=== PATIENT | male | born 1955 | race Caucasian/White ===

== ENCOUNTER 2019-10-19 00:36 | Day surgery (SDC) | payer MEDICARE, SELFPAY ==
[2019-10-17 08:31] VITALS: BMI 23.7
[2019-10-19 08:43] VITALS: BP 134/82; PULSE 50; RESP 18; TEMP 36.3; O2SAT 99; BMI 24.6
[2019-10-19] MEDS: LACTATED RINGERS 1,000 ML 150 ML IV CONT (09:02)
--- NOTE | 2019-10-19 09:14 | WPDANESEPPF ---
Anes - Initial Pre Proc Eval Procedure: Operation Date: 10/19/19 09:15 Proposed Procedures p Screening Colonoscopy - Jason Vernon MD Date/Time: 10/19/19 09:14 Surgeon: Jason Vernon MD Pre Op Diagnosis: Neoplasm Screening Patient Data Age: 63 Gender: M Height: 5 ft 10 in Weight: 78 kg Last Vital Signs Temp 97.4 F L 10/19/19 08:43 Pulse 50 L 10/19/19 08:43 Resp 18 10/19/19 08:43 BP 134/82 10/19/19 08:43 Pulse Ox 99 10/19/19 08:43 Allergies Allergy/AdvReac Type Severity Reaction Status Date / Time No Known Allergies Allergy Unverified 10/19/19 08:42 Home Medications Medication Instructions Recorded Confirmed Type No Home Medications 10/17/19 10/19/19 History Patient hx anesthesia problems: none Family hx anesthesia problems: none PMFSH Past Medical History Medical History (Updated 10/19/19 @ 09:14 by Tulio Brown MD) Healthy adult Family History Family History (Updated 09/03/16 @ 14:00 by DOCTOR UNKNOWN) Father Malignant neoplasm of prostate Mother Family history of seizure disorder Family history of lupus erythematosus Other Diabetes mellitus Hypertension Social History Social History Smoking status: Former smoker Smoking end date: 08/30/08 Alcohol intake: current Anes - Eval Final PreProcedure Day of Procedure 10/19/19 09:14 Patient weight: normal Heart: regular rate and rhythm Lungs: clear to auscultation Airway: Mallampati scale class II Neurological: alert and oriented Last oral intake: >/= 8 hours ASA classification: II Emergent: no Anesthetic plan: proceed Anesthesia type and monitoring: general GIVS and standard monitoring Informed Consent: The patient's anesthetic plan and its attendant risks and benefits were discussed with the patient/family/POA. Questions were solicited and answers provided to the satisfaction of the patient/family/POA.
--- NOTE | 2019-10-19 09:41 | PM.HPGS ---
History of Present Illness History of Present Illness Consent: Risks, benefits, and alternatives have been discussed and questions answered. Patient agrees to proceed with procedure. Chief complaint: Neoplasm Screening Narrative: Mark Moore is a 63 year old male here for screening colonoscopy, last one about 7 years ago with polyps Review of Systems Constitutional: Constitutional: Denies headache(s) and Denies weakness Eyes: Eyes: Denies blurry vision ENT: Reports Normal hearing present, Denies headache(s) and Denies neck pain Cardiovascular: Cardiovascular: Denies chest pain and Denies dyspnea Respiratory: Respiratory: Denies dyspnea Gastrointestinal: Gastrointestinal: Reports no additional gastrointestinal complaints Genitourinary: Genitourinary: Denies dysuria Musculoskeletal: Musculoskeletal: Denies neck pain Integumentary/Breasts: Skin/Breast: Denies dry skin Neurologic: Reports Normal hearing present, Denies headache(s) and Denies weakness Psychiatric: Psychiatric: Denies anxiety Endocrine: Endocrine: Denies change in body appearance Hematologic/Lymphatic: Hematologic/Lymphatic: Denies easy bleeding Allergic/Immunologic: Allergic/Immunologic: Denies urticaria PMFSH Past Medical History Medical History (Updated 10/19/19 @ 09:41 by Jason Vernon MD) Adenomatous colon polyp Healthy adult Family History Family History (Updated 09/03/16 @ 14:00 by DOCTOR UNKNOWN) Father Malignant neoplasm of prostate Mother Family history of seizure disorder Family history of lupus erythematosus Other Diabetes mellitus Hypertension Social History Social History Smoking status: Former smoker Smoking end date: 08/30/08 Alcohol intake: current Meds Home Medications and Allergies Home Medications Medication Instructions Recorded Confirmed Type No Home Medications 10/17/19 10/19/19 History Allergies Allergy/AdvReac Type Severity Reaction Status Date / Time No Known Allergies Allergy Unverified 10/19/19 08:42 Vital Signs Vital Signs - 24 hr 10/19/19 08:43 Temperature 97.4 F L Pulse Rate 50 L Respiratory Rate 18 Blood Pressure 134/82 Pulse Oximetry 99 Exam Const: General: comfortable and no acute distress HENMT: General nose exam: Normal nares present Eyes: General: appearance normal, both eyes and all related structures Neck: Neck: no JVD Resp: Auscultation: clear to auscultation bilaterally Cardio: Rate: regular rate Rhythm: regular rhythm GI: Inspection: non-distended GI Palp: Yes Soft to palpation Skin: General skin exam: normal color Neuro: General: gait normal Speech: normal speech Extrem: General: normal to inspection Psych: Mental Status: mental status grossly normal Assessment and Plan Assessment and plan (1) Adenomatous colon polyp: Qualifiers: Colon location: unspecified part of colon Qualified Code(s): D12.6 - Benign neoplasm of colon, unspecified Code(s): D12.6 - Benign neoplasm of colon, unspecified Status: Acute Assessment and Plan: will proceed with colonoscopy
[2019-10-19 10:08] VITALS: BP 124/72; PULSE 54; RESP 19; O2SAT 97
[2019-10-19 10:18] VITALS: BP 122/81; PULSE 60; RESP 22; O2SAT 98
[2019-10-19 10:28] VITALS: BP 135/90; PULSE 56; RESP 22; O2SAT 97
== END 2019-10-19 10:32 | disposition home or self-care (01) ==
PROVIDERS: PCP Internal Medicine; Visit Provider Internal Medicine Gastroenterology
PROC: 0DJD8ZZ Inspection of Lower Intestinal Tract, Via Natural or Artificial Opening Endoscopic (ICD-10-PCS; CPT 45378; principal; 2019-10-19 09:15)
DX: Z12.11 Encounter for screening for malignant neoplasm of colon (principal); D12.2 Benign neoplasm of ascending colon; K57.30 Diverticulosis of large intestine without perforation or abscess without bleeding; K64.8 Other hemorrhoids; Z87.891 Personal history of nicotine dependence
CPT/HCPCS: 45385; 88305; J2704; J7120

== ENCOUNTER 2024-03-11 18:27 | Emergency (ER) | payer MEDICARE, SELFPAY ==
[2024-03-11 18:52] VITALS: BP 117/82; PULSE 86; RESP 16; TEMP 36.9; O2SAT 98
--- NOTE | 2024-03-11 18:59 | ED.URI ---
HPI - URI/Sore Throat General Chief Complaint: Upper Respiratory Infection Stated Complaint: COUGH/CONGESTION Source: patient, RN notes reviewed and old records reviewed Mode of arrival: ambulatory Limitations: no limitations History of Present Illness HPI Narrative: patient presents with complaints of sinus pain and pressure for approximately 10 days. He reports yellow nasal drainage. Left frontal headache. Has been inhaling mentholated medication with fair results. denies any injury or trauma. Denies fever, chills, sweats. Does report some fatigue and cough. Related Data Allergies Allergy/AdvReac Type Severity Reaction Status Date / Time No Known Allergies Allergy Verified 03/11/24 18:48 Review of Systems Review of Systems: All systems reviewed & are unremarkable except as noted in HPI and below Constitutional: Constitutional: Reports no additional constitutional complaints ENT: Reports system reviewed and no additional complaints, except as documented, Reports nasal congestion, Reports nasal discharge, Reports sinus pain, Reports sinus pressure and Reports sore throat Cardiovascular: Cardiovascular: Reports no additional cardiovascular complaints Respiratory: Respiratory: Reports no additional respiratory complaints and Reports cough Gastrointestinal: Gastrointestinal: Reports no additional gastrointestinal complaints Neurologic: Reports headache(s) PMFSH Past Medical History Medical History Adenomatous colon polyp Healthy adult Prostate cancer Surgical History Surgical History H/O cataract extraction H/O left inguinal hernia repair H/O left knee surgery H/O right inguinal hernia repair History of nasal surgery Hx of excision of mass exc 2cm neck mass, 1cm back mass x2 on 02/12/23 Family History Family History Father Malignant neoplasm of prostate Mother Family history of seizure disorder Family history of lupus erythematosus Other Diabetes mellitus Hypertension Social History Social History Smoking status: Former smoker Smoking end date: 08/30/08 Alcohol intake: current Comments At the time of my signature, I reviewed and agree with the nursing past medical, surgical, social, and family history. There is no relevant family history pertinent to the patient complaint. Exam Const: General: cooperative, no acute distress, alert and awake Orientation/consciousness: oriented to person, oriented to place and oriented to time HENMT: Head: normal to inspection Face and sinus: sinus tenderness frontal Mouth: Yes moist mucous membranes Resp: Effort & Inspection: normal respiratory effort and able to speak in complete sentences Auscultation: clear to auscultation bilaterally, no crackles, no rales, no rhonchi and no wheezes Cardio: Palpation: normal PMI Rate: regular rate Rhythm: regular rhythm Heart sounds: S1 normal heart sound present and S2 normal heart sound present Neuro: General: oriented to person, oriented to place and oriented to time Cranial nerves: Yes CN's II-XII intact bilaterally Psych: Appearance: grossly normal Thought process: Normal thought process present Insight: Good insight present (Psych) Judgement: Good judgement present (Psych) Course Course Level of Care: Express Care Visit Vital Signs Vital signs: Vital Signs Temperature 98.4 F 03/11/24 18:52 Pulse Rate 86 03/11/24 18:52 Respiratory Rate 16 03/11/24 18:52 Blood Pressure 117/82 03/11/24 18:52 Pulse Oximetry 98 03/11/24 18:52 Temperature 98.4 F 03/11/24 18:52 Pulse Rate 86 03/11/24 18:52 Respiratory Rate 16 03/11/24 18:52 Blood Pressure 117/82 03/11/24 18:52 Pulse Oximetry 98 03/11/24 18:52 Reviewed MDM - URI/Sore Throat MDM N
== END 2024-03-11 19:11 | disposition home or self-care (01) ==
PROVIDERS: Emergency Provider Nurse Practitioner Family; PCP Internal Medicine
DX: J01.10 Acute frontal sinusitis, unspecified (principal); Z87.891 Personal history of nicotine dependence; Z85.46 Personal history of malignant neoplasm of prostate
CPT/HCPCS: 99213; G0463

== ENCOUNTER 2024-08-24 13:40 | Outpatient (CLI) | payer MEDICARE, SELFPAY ==
--- NOTE | ~2024-08-24 | PE_ITS ---
EXAMINATION: PET_PETPSMAST_PT DATE: 08/24/2024 15:43 INDICATION: Prostate cancer TECHNIQUE: 4.858 mCi of Illucix Ga-68([id number]) was administered i.v. Low dose computed rachell graphy (CT) images were acquired from the base of the brain to the base of the brain to the proximal thighs for attenuation correction and anatomic localization. Positron emission tomography (PET) image s were acquired in the same distribution beginning 81 minutes after injection. Images including fused PET/CT images were reconstructed in axial, coronal, and sagittal planes. Automated exposure control technique was employed. The dose-length product was 978.48mGy-cm. COMPARISON: CT dated 08/20/2016 FINDINGS: Head/neck: Typical pattern of symmetric physiologic increased activity in the lacrimal, parotid and submandibula r glands as well as along the mucosa of the nasal and oral cavities, pharynx and hypopharynx. No path ologically enlarged cervical lymphadenopathy or suspicious foci of increased uptake in the visualized head or neck. Chest: Calcite left upper lobe nodule consistent with old granulomatous disease. Mild atelectasis in the dep endent lower lobes. No other suspicious pulmonary nodules, pulmonary edema or pleural effusion. Heart size is normal. No pericardial effusion. Thoracic aorta is normal in caliber. No pathologically enla rged or PSMA avid thoracic lymphadenopathy. Abdomen/pelvis/proximal thighs: Physiologic renal accumulation and excretion of activity in the kidneys, bladder and along portions o f ureters. Prostatomegaly measuring 4.9 x 4.4 cm. There is an asymmetric small focus of mild relative increased uptake with maximal SUV of 3.2 at the left side of the gland. Normal degree and slightly h eterogenous pattern of increased uptake throughout the liver and spleen without radiologic correlate or dominant PSMA avid lesion. The gallbladder, pancreas and bilateral adrenal glands are normal. Mode rate uptake scattered throughout the bowels with typical duodenal and proximal jejunal predominance a nd without radiologic correlate, also likely physiologic. There is prominent colonic sigmoid and desc ending colon predominant diverticulosis without adjacent inflammatory change to suggest diverticuliti s. No other abnormal foci of increased uptake or pathologically enlarged lymphadenopathy in the abdom en, pelvis or proximal thighs. Musculoskeletal: Small densely sclerotic bone island at the L3 vertebral body without corresponding PSMA activity. No other suspicious lytic, blastic or PSMA avid bone lesions to suggest metastatic disease. IMPRESSION: 1. Subtle asymmetric focus of mild relative increased uptake at the left side of the prostate which c ould represent the site of the reported biopsy-proven prostate cancer. No other lesions suspicious fo r metastatic disease. Reviewed, dictated and finalized at location B. [employer] ADMINISTRATOR IMPRESSION: 1. Subtle asymmetric focus of mild relative increased uptake at the left side o f the prostate which could represent the site of the reported biopsy-proven pro state cancer. No other lesions suspicious for metastatic disease.
== END 2024-08-24 13:41 | disposition home or self-care (01) ==
PROVIDERS: PCP Internal Medicine; Visit Provider Urology
DX: C61 Malignant neoplasm of prostate (principal)
CPT/HCPCS: 78815; A9596

== ENCOUNTER 2024-11-06 00:10 | Day surgery (SDC) | payer MEDICARE, SELFPAY ==
[2024-10-27 14:28] VITALS: BMI 25.2
--- OUTSIDE RECORDS SUMMARY | 2024-11-06 00:12 | XMS_ITS | Referral Summary ---
Author Organization [facility] Address [address] [place] [address] Care Team Providers Care Sub Master Name Role Phone Eligio Cramer MD Primary Care Provider [phone] Source Comments [facility],non-owned Affiliates and Associated Physician Practices is amultiple site organization consisting of ambulatory clinics and hospital sitesin [place], [place], [place] and [place]. This disclosure is being madepursuant to the Care Everywhere program and may not contain all information available regarding this patient. Last updated 18.[facility] Allergies No known active allergies Medications * Be aware that medications may not be up to date on this document. Alwaysverify current medications with the patient. Medication Sig Dispensed Refills Start Date End Date Status HYDROcodone-acetam inophen (NORCO) 5-325 MG tablet Take 1 tablet by mouth every 8 hours as needed for Pain 6 tablet 11/05/2019 Active cyclobenzaprine (FLEXERIL) 10 MG tablet Take 1 tablet by mouth 3 times daily as needed for Muscle Spasms 9 tablet 11/05/2019 Active acetaminophen (TYLENOL) 325 MG tablet Take 2 tablets by mouth every 4 hours as needed for Fever or Pain Maximum allowable Acetaminophen amount = 4 Grams (4000 mg) / 24 hours. 30 tablet 11/05/2019 Active triple antibiotic (NEOSPORIN) 5-400-5000 ointment Apply to affected area 3 times daily 30 g 11/05/2019 Active Active Problems No known active problems Immunizations Name Administration Dates Next Due TDAP (7yrs+) 11/14/2017 Social History Tobacco Use Types Packs/Day Years Used Date Smoking Tobacco: Never Smokeless Tobacco: Never Alcohol Use Standard Drinks/Week Comments Yes 0 (1 standard drink = 0.6 oz pur e alcohol) Alcohol every evening Sex and Gender Information Value Date Recorded Sex Assigned at Not on file Gender Identity Not on file Sexual Orientation Not on file Last Filed Vital Signs Vital Sign Reading Time Taken Comments Blood Pressure 123/78 11/15/2019 3:40 PM CDT Pulse 80 11/15/2019 3:40 PM CDT Temperature 36.7 C (98.1 F) 11/15/2019 3:40 PM CDT Respiratory Rate 16 11/15/2019 3:40 PM CDT Oxygen Saturation 99% 11/15/2019 3:40 PM CDT Inhaled Oxygen Concentration - - Weight 74.8 kg (165 lb) 11/15/2019 3:40 PM CDT Height 180.3 cm (5' 11 ) 11/15/2019 3:40 PM CDT Body Mass Index 23.01 11/15/2019 3:40 PM CDT Plan of Treatment Not on file Care Teams Sub Master Relationship Specialty Start Date End Date Eligio Cramer MD PCP - General Internal Medicine 11/14/17
--- OUTSIDE RECORDS SUMMARY | 2024-11-06 00:12 | XMS_ITS | Clinical Summary ---
Author Organization [facility] Address [address] [place] [id number] Phone Care Team Providers Care Grocery Supervisor Name Role Phone Eligio Cramer MD Primary Care Provider [phone] Allergies No known active allergies Medications amoxicillin-cla vulanate (AUGMENTIN) 875-125 mg tablet Take 1 Tablet by mouth every 12 hours. Active HYDROcodone-aubrey taminophen (NORCO) 5-325 mg tabletIndicatio ns:Foreign body in paranasal sinus, initial encounter Take 1 Tablet by mouth every 6 hours as needed for Pain, Moderate. Max Daily Amount: 4 Tablets 18 Tablet 04/08/2020 Active Social History Tobacco Use Types Packs/Day Years Used Date Smoking Tobacco: Never Alcohol Use Standard Drinks/Week Comments Yes 0 (1 standard drink = 0.6 oz pur e alcohol) Sex and Gender Information Value Date Recorded Sex Assigned at Not on file Legal Sex Male 10:10 AM CDT Gender Identity Not on file Sexual Orientation Not on file Last Filed Vital Signs Vital Sign Reading Time Taken Comments Blood Pressure 147/87 04/08/2020 12:43 PM CDT Pulse 57 04/08/2020 12:43 PM CDT Temperature 36.1 C (97 F) 04/08/2020 12:43 PM CDT Respiratory Rate 18 04/08/2020 12:43 PM CDT Oxygen Saturation 98% 04/08/2020 12:43 PM CDT Inhaled Oxygen Concentration - - Weight 77.6 kg (171 lb) 04/08/2020 8:44 AM CDT Height 177.8 cm (5' 10 ) 04/08/2020 8:44 AM CDT Body Mass Index 24.54 04/08/2020 8:44 AM CDT Plan of Treatment Health Maintenance Due Date Last Done Comments COLORECTAL SCREENING 1998 Colorectal Cancer Screening 1998 FIT-DNA Q 3 years 1998 FIT/FOBT Q 1 year 1998 Flex Sig/CT Colonography Q 5 years 1998 PNEUMOCOCCAL VACCINE 50+ YEA RS (1 of 1 - PCV) 12/17/2003 ZOSTER VACCINE (1 of 2) 12/17/2003 INFLUENZA VACCINE (#1) 2024 11/14/2017 DTAP/TDAP/TD VACCINES (4 - T d or Tdap) 11/15/2027 11/14/2017, 03/18/2017, 03/23/2013 RSV VACCINE (60+ or ) (1 - 1-dose 75+ series) 2028 Medical Devices Implanted Type Area Machine Molder Device Identifier Shelf Expiration Date Model / Serial / Lot Hemostatic Surgifoam [id number] 1971 - [id number] Implanted:Qty : 1 on 04/08/2020 by Octavio Khan MD at [facility] Hemostatic N/A: Face [employer] [id number] 10/13/20231971 / [id number] Insurance [employer] ([employer]) PLUS [facility] MCR Advance Directives For more information, please contact: [phone] * Full Code (Latest Code Status on File) Date Activated Date Inactivated Comments 04/08/2020 9:39 AM 04/08/2020 3:09 PM * Full Code Date Activated Date Inactivated Comments 04/08/2020 8:42 AM 04/08/2020 9:39 AM Care Teams Grocery Supervisor Relationship Specialty Start Date End Date Eligio Cramer MD [address] [place] [address] PCP - General Internal Medicine 03/29/20
--- OUTSIDE RECORDS SUMMARY | 2024-11-06 00:13 | XMS_ITS | Data Portability ---
Author Organization [facility] Fritz Simon Address [address] [facility] [place] [address] Care Team Providers Care Colorectal Surgeon Name Role Phone MAYA CRAMER Primary Care Provider Assessment Encounter Date Assessment Date Assessment LastModified by Organization Details LastModified Time 02/24/2024 02/24/2024 we will give Prevnar 20 today old records says he had a colonoscopy in 2020 and [facility] retrieved that follow-up 6 months [email or web address] Not available 02/26/2024 09:35:54 08/17/2024 08/17/2024 low-fat diet check labs hearing test then probably we will need ENT follow up with [facility] 6 recommended to stay up-to-date on screenings and immunizations [email or web address] Not available 08/19/2024 15:39:31 Plan of Treatment Reminders Order Date Submit Date Provider Last Modified By Organization Details Last Modified Time Details Appointments ANY 15 2024 09:00A M Maya Cramer MD Not available Not available Not available Lab CBC w/ auto diff 2023 024 [facility], [address], [address], 10/27/2024 07:07:46 CMP, serum or plasma 2023 024 [facility], [address] [facility], [facility] [address], [place], [address], 10/27/2024 07:07:45 lipid panel, serum 2023 024 [facility], [address] [facility], [facility] [address], [place], [address], 10/27/2024 07:07:44 Referral None recorded . Procedures None recorded . Surgeries None recorded . Imaging None recorded . Medication Orders None recorded . Patient TargetsNo targets recorded. Patient Instructions Encounter Date Encounter Id Patient Instructions Last Modified By Organization Details Last Modified Time 08/17/2024 [id number] hearing evaluation* [email or web address] Not available 10/19/2024 16:52:36 Reason for Referral None Reported. Results Created Date Observation Date Name Description Value Unit Range Abnormal Flag Note LastModifiedBy Organization Detail LastModifiedTime 01/25/20 24 01/26/2024 LIPID PANEL cholesterol, total 209 mg/dL 100-19 9 above high normal Not Available [facility] ([facility]) [address] [place], [address], 01/26/2024 13:12:14 01/25/20 24 01/26/2024 LIPID PANEL triglyceride s 81 mg/dL 0-149 Not Available [facility] ([facility]) [address] [place], [address], 01/26/2024 13:12:14 01/25/20 24 01/26/2024 LIPID PANEL HDL cholesterol 69 mg/dL >39 Not Available [facility] ([facility]) [address] [place], [address], 01/26/2024 13:12:14 01/25/20 24 01/26/2024 LIPID PANEL VLDL cholesterol terrell 14 mg/dL 5-40 Not Available [facility] ([facility]) [address] [place], [address], 01/26/2024 13:12:14 01/25/20 24 01/26/2024 LIPID PANEL LDL chol calc ([facility]) 126 mg/dL 0-99 above high normal Not Available [facility] ([facility]) [address] [place], [address], 01/26/2024 13:12:14 01/25/20 24 01/26/2024 COMP. METAB OLIC PANEL (14) glucose 98 mg/dL 70-99 Not Available [facility] ([facility]) [address] [place], [address], 01/26/2024 13:12:15 01/25/20 24 01/26/2024 COMP. METAB OLIC PANEL (14) BUN 20 mg/dL 8-27 Not Available [facility] ([facility]) [address] [place], [address], 01/26/2024 13:12:15 01/25/20 24 01/26/2024 COMP. METAB OLIC PANEL (14) creatinine 0.86 mg/dL 0.76-1 .27 Not Available [facility] ([facility]) [address] [place], [address], 01/26/2024 13:12:15 01/25/20 24 01/26/2024 COMP. METAB OLIC PANEL (14) eGFR 93 mL/mi n/1.7 3 >59 Not Available [facility] ([facility]) [address] [place], [address], 01/26/2024 13:12:15 01/25/20 24 01/26/2024 COMP. METAB OLIC PANEL (14) BUN/creatini ne ratio 23 10-24 Not Available [facility] ([facility]) [address] [place], [address], 01/26/2024 13:12:15 01/25/20 24 01/26/2024 COMP. METAB OLIC PANEL (14) sodium 141 mmol/ L 134-14 4 Not Available [facility] ([facility]) [address] [place], [address], 01/26/2024 13:12:15 01/25/20 24 01/26/2024 COMP. METAB OLIC PANEL (14) potassium 4.8 mmol/ L 3.5-5. 2 Not Available [facility] ([facility]) [address] [place], [address], 01/26/2024 13:12:15 01/25/20 24 01/26/2024 COMP. METAB OLIC PANEL (14) chloride 107 mmol/ L 96-106 above high normal Not Available [facility] ([facility]) [address] [place], [address], 01/26/2024 13:12:15 01/25/20 24 01/26/2024 COMP. METAB OLIC PANEL (14) carbon dioxide, total 24 mmol/ L Not Available [facility] ([facility]) [address] [place], [address], 01/26/2024 13:12:15 01/25/20 24 01/26/2024 COMP. METAB OLIC PANEL (14) calcium 9.2 mg/dL 8.6-10 .2 Not Available [facility] ([facility]) [address] [place], [address], 01/26/2024 13:12:15 01/25/20 24 01/26/2024 COMP. METAB OLIC PANEL (14) protein, total 6.5 g/dL 6.0-8. 5 Not Available [facility] ([facility]) [address] [place], [address], 01/26/2024 13:12:15 01/25/20 24 01/26/2024 COMP. METAB OLIC PANEL (14) albumin 4.2 g/dL 3.9-4. 9 Not Available [facility] ([facility]) [address] [place], [address], 01/26/2024 13:12:15 01/25/20 24 01/26/2024 COMP. METAB OLIC PANEL (14) globulin, total 2.3 g/dL 1.5-4. 5 Not Available [facility] ([facility]) [address] [place], [address], 01/26/2024 13:12:15 01/25/20 24 01/26/2024 COMP. METAB OLIC PANEL (14) A/G ratio 1.8 1.2-2. 2 Not Available [facility] ([facility]) [address] [facility], [place], [address], 01/26/2024 13:12:15 01/25/20 24 01/26/2024 COMP. METAB OLIC PANEL (14) bilirubin, total 0.3 mg/dL 0.0-1. 2 Not Available [facility] ([facility]) [address] [facility], [place], [address], 01/26/2024 13:12:15 01/25/20 24 01/26/2024 COMP. METAB OLIC PANEL (14) alkaline phosphatase 61 IU/L 44-121 Not Available [facility] ([facility]) [address] [facility], [place], [address], 01/26/2024 13:12:15 01/25/20 24 01/26/2024 COMP. METAB OLIC PANEL (14) AST (SGOT) 14 IU/L 0-40 Not Available [facility] ([facility]) [address] [facility], [place], [address], 01/26/2024 13:12:15 01/25/20 24 01/26/2024 COMP. METAB OLIC PANEL (14) ALT (SGPT) 12 IU/L 0-44 Not Available [facility] ([facility]) [address] [facility], [place], [address], 01/26/2024 13:12:15 01/25/20 24 01/26/2024 CBC WITH DIFFE RENTI AL/PL ATELE T WBC 6.2 x10e3 /uL 3.4-10 .8 Not Available [facility] ([facility]) [address] [facility], [place], [address], 01/26/2024 13:12:16 01/25/20 24 01/26/2024 CBC WITH DIFFE RENTI AL/PL ATELE T RBC 4.55 x10e6 /uL 4.14-5 .80 Not Available [facility] ([facility]) [address] [facility], [place], [address], 01/26/2024 13:12:16 01/25/20 24 01/26/2024 CBC WITH DIFFE RENTI AL/PL ATELE T hemoglobin 14.2 g/dL 13.0-1 7.7 Not Available [facility] ([facility]) [address] [facility], [place], [address], 01/26/2024 13:12:16 01/25/20 24 01/26/2024 CBC WITH DIFFE RENTI AL/PL ATELE T hematocrit 43.4 % 37.5-5 1.0 Not Available [facility] ([facility]) [address] [facility], [place], [address], 01/26/2024 13:12:16 01/25/20 24 01/26/2024 CBC WITH DIFFE RENTI AL/PL ATELE T MCV 95 fL 79-97 Not Available [facility] ([facility]) [address] [place], [address], 01/26/2024 13:12:16 01/25/20 24 01/26/2024 CBC WITH DIFFE RENTI AL/PL ATELE T MCH 31.2 pg 26.6-3 3.0 Not Available [facility] ([facility]) [address] [place], [address], 01/26/2024 13:12:16 01/25/20 24 01/26/2024 CBC WITH DIFFE RENTI AL/PL ATELE T MCHC 32.7 g/dL 31.5-3 5.7 Not Available [facility] ([facility]) [address] [place], [address], 01/26/2024 13:12:16 01/25/20 24 01/26/2024 CBC WITH DIFFE RENTI AL/PL ATELE T RDW 12.6 % 11.6-1 5.4 Not Available [facility] ([facility]) [address] [facility], [place], [address], 01/26/2024 13:12:16 01/25/20 24 01/26/2024 CBC WITH DIFFE RENTI AL/PL ATELE T platelets 198 x10e3 /uL 150-45 0 Not Available [facility] ([facility]) [address] [facility], [place], [address], 01/26/2024 13:12:16 01/25/20 24 01/26/2024 CBC WITH DIFFE RENTI AL/PL ATELE T neutrophils 58 % notest ab. Not Available [facility] ([facility]) [address] [facility], [place], [address], 01/26/2024 13:12:16 01/25/20 24 01/26/2024 CBC WITH DIFFE RENTI AL/PL ATELE T lymphs 29 % notest ab. Not Available [facility] ([facility]) [address] [facility], [place], [address], 01/26/2024 13:12:16 01/25/20 24 01/26/2024 CBC WITH DIFFE RENTI AL/PL ATELE T monocytes 10 % notest ab. Not Available [facility] ([facility]) [address] [facility], [place], [address], 01/26/2024 13:12:16 01/25/20 24 01/26/2024 CBC WITH DIFFE RENTI AL/PL ATELE T eos 1 % notest ab. Not Available [facility] ([facility]) [address] [facility], [place], [address], 01/26/2024 13:12:16 01/25/20 24 01/26/2024 CBC WITH DIFFE RENTI AL/PL ATELE T basos 1 % notest ab. Not Available [facility] ([facility]) [address] [facility], [place], [address], 01/26/2024 13:12:16 01/25/20 24 01/26/2024 CBC WITH DIFFE RENTI AL/PL ATELE T neutrophils (absolute) 3.6 x10e3 /uL 1.4-7. 0 Not Available [facility] ([facility]) [address] [facility], [place], [address], 01/26/2024 13:12:16 01/25/20 24 01/26/2024 CBC WITH DIFFE RENTI AL/PL ATELE T lymphs (absolute) 1.8 x10e3 /uL 0.7-3. 1 Not Available [facility] ([facility]) [address] [facility], [place], [address], 01/26/2024 13:12:16 01/25/20 24 01/26/2024 CBC WITH DIFFE RENTI AL/PL ATELE T monocytes(ab solute) 0.6 x10e3 /uL 0.1-0. 9 Not Available [facility] ([facility]) [address] [facility], [place], [address], 01/26/2024 13:12:16 01/25/20 24 01/26/2024 CBC WITH DIFFE RENTI AL/PL ATELE T eos (absolute) 0.1 x10e3 /uL 0.0-0. 4 Not Available [facility] ([facility]) [address] [place], [address], 01/26/2024 13:12:16 01/25/20 24 01/26/2024 CBC WITH DIFFE RENTI AL/PL ATELE T baso (absolute) 0.1 x10e3 /uL 0.0-0. 2 Not Available [facility] ([facility]) [address] [facility], [place], [address], 01/26/2024 13:12:16 01/25/20 24 01/26/2024 CBC WITH DIFFE RENTI AL/PL ATELE T immature granulocytes 1 % notest ab. Not Available [facility] ([facility]) [address] [facility], [place], [address], 01/26/2024 13:12:16 01/25/20 24 01/26/2024 CBC WITH DIFFE RENTI AL/PL ATELE T immature grans (abs) 0.0 x10e3 /uL 0.0-0. 1 Not Available [facility] ([facility]) [address] [facility], [place], [address], 01/26/2024 13:12:16 01/25/20 24 01/26/2024 PROST ATE-S PECIF IC AG prostate specific Ag 9.5 NG/mL 0.0-4. 0 above high normal Terra ECLIA metho dolog y. Accor ding to the Ameri can [employer] g[employer] iatio n, Serum PSA shoul d decre ase and remai n at undet ectab le level s after radic al prost atect delfino. The AUA defin es bioch emica l recur rence as an initi al PSA value 0.2 ng/mL or great er follo wed by a subse quent confi rmato ry PSA value 0.2 ng/mL or great er. Value s obtai yadira with diffe rent assay metho ds or kits canno t be used inter tejeda eaherb . Resul ts canno t be inter prete d as absol nicholas evide nce of the prese nce or absen ce of jackie olivier se. Not Available [facility] ([facility]) [address] [facility], [place], [address], 01/26/2024 13:12:17 10/26/1910/27/2024 LIPID PANEL cholesterol, total 188 mg/dL 100-19 9 Not Available [facility] ([facility]) [address] [facility], [place], [address], 10/27/2024 07:07:44 10/26/19 25 10/27/2024 LIPID PANEL triglyceride s 64 mg/dL 0-149 Not Available [facility] ([facility]) [address] [place], [address], 10/27/2024 07:07:44 10/26/19 25 10/27/2024 LIPID PANEL HDL cholesterol 60 mg/dL >39 Not Available [facility] ([facility]) [address] [place], [address], 10/27/2024 07:07:44 10/26/19 25 10/27/2024 LIPID PANEL VLDL cholesterol terrell 12 mg/dL 5-40 Not Available [facility] ([facility]) [address] [place], [address], 10/27/2024 07:07:44 10/26/19 25 10/27/2024 LIPID PANEL LDL chol calc ([facility]) 116 mg/dL 0-99 above high normal Not Available [facility] ([facility]) [address] [place], [address], 10/27/2024 07:07:44 10/26/19 25 10/27/2024 COMP. METAB OLIC PANEL (14) glucose 106 mg/dL 70-99 above high normal Not Available [facility] ([facility]) [address] [place], [address], 10/27/2024 07:07:45 10/26/19 25 10/27/2024 COMP. METAB OLIC PANEL (14) BUN 20 mg/dL 8-27 Not Available [facility] ([facility]) [address] [place], [address], 10/27/2024 07:07:45 10/26/19 25 10/27/2024 COMP. METAB OLIC PANEL (14) creatinine 1.03 mg/dL 0.76-1 .27 Not Available [facility] ([facility]) [address] [place], [address], 10/27/2024 07:07:45 10/26/19 25 10/27/2024 COMP. METAB OLIC PANEL (14) eGFR 78 mL/mi n/1.7 3 >59 Not Available [facility] ([facility]) [address] [facility], [place], [address], 10/27/2024 07:07:45 10/26/19 25 10/27/2024 COMP. METAB OLIC PANEL (14) BUN/creatini ne ratio 19 10-24 Not Available [facility] ([facility]) [address] [facility], [place], [address], 10/27/2024 07:07:45 10/26/19 25 10/27/2024 COMP. METAB OLIC PANEL (14) sodium 144 mmol/ L 134-14 4 Not Available [facility] ([facility]) [address] [facility], [place], [address], 10/27/2024 07:07:45 10/26/19 25 10/27/2024 COMP. METAB OLIC PANEL (14) potassium 4.6 mmol/ L 3.5-5. 2 Not Available [facility] ([facility]) [address] [facility], [place], [address], 10/27/2024 07:07:45 10/26/19 25 10/27/2024 COMP. METAB OLIC PANEL (14) chloride 107 mmol/ L 96-106 above high normal Not Available [facility] ([facility]) [address] [facility], [place], [address], 10/27/2024 07:07:45 10/26/19 25 10/27/2024 COMP. METAB OLIC PANEL (14) carbon dioxide, total 24 mmol/ L 20-29 Not Available [facility] ([facility]) [address] [facility], [place], [address], 10/27/2024 07:07:45 10/26/19 25 10/27/2024 COMP. METAB OLIC PANEL (14) calcium 9.3 mg/dL 8.6-10 .2 Not Available [facility] ([facility]) [address] [place], [address], 10/27/2024 07:07:45 10/26/19 25 10/27/2024 COMP. METAB OLIC PANEL (14) protein, total 6.6 g/dL 6.0-8. 5 Not Available [facility] ([facility]) [address] [place], [address], 10/27/2024 07:07:45 10/26/19 25 10/27/2024 COMP. METAB OLIC PANEL (14) albumin 4.3 g/dL 3.9-4. 9 Not Available [facility] ([facility]) [address] [place], [address], 10/27/2024 07:07:45 10/26/19 25 10/27/2024 COMP. METAB OLIC PANEL (14) globulin, total 2.3 g/dL 1.5-4. 5 Not Available [facility] ([facility]) [address] [place], [address], 10/27/2024 07:07:45 10/26/19 25 10/27/2024 COMP. METAB OLIC PANEL (14) bilirubin, total 0.3 mg/dL 0.0-1. 2 Not Available [facility] ([facility]) [address] [place], [address], 10/27/2024 07:07:45 10/26/19 25 10/27/2024 COMP. METAB OLIC PANEL (14) alkaline phosphatase 74 IU/L 44-121 Not Available [facility] ([facility]) [address] [place], [address], 10/27/2024 07:07:45 10/26/19 25 10/27/2024 COMP. METAB OLIC PANEL (14) AST (SGOT) 19 IU/L 0-40 Not Available [facility] ([facility]) [address] [facility], [place], [address], 10/27/2024 07:07:45 10/26/19 25 10/27/2024 COMP. METAB OLIC PANEL (14) ALT (SGPT) 13 IU/L 0-44 Not Available [facility] ([facility]) [address] [facility], [place], [address], 10/27/2024 07:07:45 10/26/19 25 10/27/2024 CBC WITH DIFFE RENTI AL/PL ATELE T WBC 5.6 x10e3 /uL 3.4-10 .8 Not Available [facility] ([facility]) [address] [facility], [place], [address], 10/27/2024 07:07:46 10/26/19 25 10/27/2024 CBC WITH DIFFE RENTI AL/PL ATELE T RBC 4.67 x10e6 /uL 4.14-5 .80 Not Available [facility] ([facility]) [address] [facility], [place], [address], 10/27/2024 07:07:46 10/26/19 25 10/27/2024 CBC WITH DIFFE RENTI AL/PL ATELE T hemoglobin 14.5 g/dL 13.0-1 7.7 Not Available [facility] ([facility]) [address] [place], [address], 10/27/2024 07:07:46 10/26/19 25 10/27/2024 CBC WITH DIFFE RENTI AL/PL ATELE T hematocrit 43.9 % 37.5-5 1.0 Not Available [facility] ([facility]) [address] [place], [address], 10/27/2024 07:07:46 10/26/19 25 10/27/2024 CBC WITH DIFFE RENTI AL/PL ATELE T MCV 94 fL 79-97 Not Available [facility] ([facility]) [address] [facility], [place], [address], 10/27/2024 07:07:46 10/26/19 25 10/27/2024 CBC WITH DIFFE RENTI AL/PL ATELE T MCH 31.0 pg 26.6-3 3.0 Not Available [facility] ([facility]) [address] [facility], [place], [address], 10/27/2024 07:07:46 10/26/19 25 10/27/2024 CBC WITH DIFFE RENTI AL/PL ATELE T MCHC 33.0 g/dL 31.5-3 5.7 Not Available [facility] ([facility]) [address] [facility], [place], [address], 10/27/2024 07:07:46 10/26/19 25 10/27/2024 CBC WITH DIFFE RENTI AL/PL ATELE T RDW 12.8 % 11.6-1 5.4 Not Available [facility] ([facility]) [address] [place], [address], 10/27/2024 07:07:46 10/26/19 25 10/27/2024 CBC WITH DIFFE RENTI AL/PL ATELE T platelets 215 x10e3 /uL 150-45 0 Not Available [facility] ([facility]) [address] [facility], [place], [address], 10/27/2024 07:07:46 10/26/19 25 10/27/2024 CBC WITH DIFFE RENTI AL/PL ATELE T neutrophils 53 % notest ab. Not Available [facility] ([facility]) [address] [facility], [place], [address], 10/27/2024 07:07:46 10/26/19 25 10/27/2024 CBC WITH DIFFE RENTI AL/PL ATELE T lymphs 33 % notest ab. Not Available [facility] ([facility]) [address] [place], [address], 10/27/2024 07:07:46 10/26/19 25 10/27/2024 CBC WITH DIFFE RENTI AL/PL ATELE T monocytes 11 % notest ab. Not Available [facility] ([facility]) [address] [facility], [place], [address], 10/27/2024 07:07:46 10/26/19 25 10/27/2024 CBC WITH DIFFE RENTI AL/PL ATELE T eos 1 % notest ab. Not Available [facility] ([facility]) [address] [facility], [place], [address], 10/27/2024 07:07:46 10/26/19 25 10/27/2024 CBC WITH DIFFE RENTI AL/PL ATELE T basos 1 % notest ab. Not Available [facility] ([facility]) [address] [place], [address], 10/27/2024 07:07:46 10/26/19 25 10/27/2024 CBC WITH DIFFE RENTI AL/PL ATELE T neutrophils (absolute) 3.0 x10e3 /uL 1.4-7. 0 Not Available [facility] ([facility]) [address] [place], [address], 10/27/2024 07:07:46 10/26/19 25 10/27/2024 CBC WITH DIFFE RENTI AL/PL ATELE T lymphs (absolute) 1.8 x10e3 /uL 0.7-3. 1 Not Available [facility] ([facility]) [address] [place], [address], 10/27/2024 07:07:46 10/26/19 25 10/27/2024 CBC WITH DIFFE RENTI AL/PL ATELE T monocytes(ab solute) 0.6 x10e3 /uL 0.1-0. 9 Not Available [facility] ([facility]) [address] [facility], [place], [address], 10/27/2024 07:07:46 10/26/19 25 10/27/2024 CBC WITH DIFFE RENTI AL/PL ATELE T eos (absolute) 0.1 x10e3 /uL 0.0-0. 4 Not Available [facility] ([facility]) [address] [place], [address], 10/27/2024 07:07:46 10/26/19 25 10/27/2024 CBC WITH DIFFE RENTI AL/PL ATELE T baso (absolute) 0.1 x10e3 /uL 0.0-0. 2 Not Available [facility] ([facility]) [address] [facility], [place], [address], 10/27/2024 07:07:46 10/26/19 25 10/27/2024 CBC WITH DIFFE RENTI AL/PL ATELE T immature granulocytes 1 % notest ab. Not Available [facility] ([facility]) [address] [facility], [place], [address], 10/27/2024 07:07:46 10/26/19 25 10/27/2024 CBC WITH DIFFE RENTI AL/PL ATELE T immature grans (abs) 0.0 x10e3 /uL 0.0-0. 1 Not Available [facility] ([facility]) [address] [place], [address], 10/27/2024 07:07:46 08/24/20 24 08/24/2024 PET, skull base to mid-t high No observ ation record ed. [facility] [address], [place], [address], 08/28/2024 14:46:41 10/31/19 25 10/31/2024 elect rocar diogr am No observ ation record ed. [facility]-Office Order Internal Use Only DO Not Attach Compendium DO Not Attach Compendium, Do Not Delete/merge, [id number] 10/31/2024 10:35:19 Result Notes None recorded. Problems Name Problem SNOMED Code Status Onset Date Resolution Date Notes Provider Name and Address Organization Details Recorded Time Hyperlipidemia 86154537 Active 2023 Maya Cramer MD Attn: Julien almonte,[address], [place], [address], [facility], [facility] 4 09:36:09 Prostate specific antigen above reference range 948214525 Active 2023 Maya Cramer MD Attn: Julien almonte,[address], [place], [address], [facility] 4 09:36:10 Problem Notes None recorded. Procedures Surgical History Date Name Laterality Status Provider Name and Address Organization Details Recorded Time 08/30/19 22 Eye Surgery completed Margret Vivas [facility] 02/24/2024 10:05:24 08/30/19 22 biopsy of prostate completed Margret Vivas [facility] 02/24/2024 10:05:49 08/30/19 12 Arthroscopic Surgery completed Margret Vivas [facility] 02/24/2024 10:05:15 08/30/19 12 Knee Surgery completed Margret Vivas [facility] 02/24/2024 10:05:34 Imaging Results Imaging Date Name Status LastModified by Organization Details LastModified Time 08/24/2024 PET, skull base to mid-thigh completed [facility] [address], [place], [address], 08/28/2024 14:46:41 10/31/2024 electrocardiogram completed [facility] In-Offi ce Order Internal Use Only DO Not Attach Compendium DO Not Attach Compendium, Do Not Delete/merge, [id number] 10/31/2024 10:35:19 Procedure Notes None recorded. Medical Equipment None Reported. Allergies No known drug allergies Medications Name Sig Start Date Stop Date Status Note LastModified by Organization Details LastModified Time amoxicillin 875 mg-potassiu m clavulanate 125 mg tablet TAKE 1 TABLET BY MOUTH EVERY 12 HOURS 08/17 completed Not Available Not Available Not Available tadalafil 20 mg tablet 1TAB 1HOUR PRIOR TO INTENDED ACTIVITY DIRECTED LIMIT 1TAB PER 24 HOURS. INSURANCE WILL NOT COVERE active Not Available Not Available No t Available Vitals Date Recorded Body height Body mass index (BMI) Body weight Heart rate Oxygen saturation Oxygen saturation in Arterial blood by Pulse oximetry Systolic blood pressure Diastolic blood pressure Provider Name and Address Organization Details Last Updated DateTime 4 179.07 cm 23.5 kg/m2 47332.3 3 g 62 /min 98 % 98 % 126 mm[Hg] 72 mm[Hg] Margret Vivas [facility] 4 10:09:25 Date Recorded Body height Body mass index (BMI) Body weight Heart rate Oxygen saturation Oxygen saturation in Arterial blood by Pulse oximetry Heart rate Oxygen saturation Oxygen saturation in Arterial blood by Pulse oximetry Systolic blood pressure Diastolic blood pressure Systolic blood pressure Diastolic blood pressure Provider Name and Address Organization Details Last Updated DateTime 4 179.07 cm 24 kg/m2 41114.6 3 g 59 /min 97 % 97 % 70 /min 98 % 98 % 144 mm[Hg] 70 mm[Hg] 134 mm[Hg] 64 mm[Hg] Safia Magaña [facility] 4 10:54:07 Date Recorded Body height Provider Name an d Address Organization Details Last Updated DateTime 10/30/2024 179.07 cm Anita Valencia [facility] 10/30/2024 15:56:39 Date Recorded Body mass index (BMI) Body weight Oxygen saturation Oxygen saturation in Arterial blood by Pulse oximetry Heart rate Systolic blood pressure Diastolic blood pressure Provider Name and Address Organization Details Last Updated DateTime 5 24.9 kg/m2 61169.6 2 g 98 % 98 % 78 /min 130 mm[Hg] 70 mm[Hg] Malinda Avalos [facility] 5 16:06:39 Social History Question Answer Notes LastModified by Organizat ion Details LastModified Time Tobacco Smoking Status Former Smoker quit in 1997 Margret Vivas MA [facility], [facility] 02/24/2024 10:03:47 Do You Have An Advance Directive? No Information not available 02/24/2024 What Is Your Level Of Alcohol Consumption? Moderate 2 Daily Information not available 02/24/2024 Are You Blind Or Do You Have Difficulty Seeing? No Information not available 02/24/2024 What Is Your Level Of Caffeine Consumption? Occasional 2 Cups A Day Information not available 02/24/2024 In The 14 Days Before Symptom Onset, Have You Had Close Contact With A Laboratory-confir med COVID-19 While That Case Was Ill? No Information not available 08/17/2024 In The 14 Days Before Symptom Onset, Have You Had Close Contact With A Person Who Is Under Investigation For COVID-19 While That Person Was Ill? No Information not available 08/17/2024 Have You Been To An Area Known To Be High Risk For COVID-19? No Information not available 08/17/2024 Are You Currently Employed? No Retired Information not available 02/24/2024 Are You Deaf Or Do You Have Serious Difficulty Hearing? No Information not available 02/24/2024 What Type Of Diet Are You Following? REGULAR Information not available 02/24/2024 Are There Any Guns Present In Your Home? No Information not available 08/17/2024 What Was The Date Of Your Most Recent Tobacco Screening? 10/30/2024 [email or web address] Information not available 10/30/2024 What Is Your Current Pack Years? [email or web address] ears Information not available 02/24/2024 What Is Your Relationship Status? Information not available 02/24/2024 Do You Use Your Seat Belt Or Car Seat Routinely? Yes Information not available 02/24/2024 Do You Have Smoke And Carbon Monoxide Detectors In Your Home? Yes Information not available 02/24/2024 How Much Tobacco Do You Smoke? 1 PPD Information not available 02/24/2024 Do You Feel Stressed (tense, Restless, Nervous, Or Anxious, Or Unable To Sleep At Night)? [id number] Information not available 02/24/2024 Do You Use Any Illicit Or Recreational Drugs? No Information not available 02/24/2024 Do You Use Sunscreen Routinely? No Information not available 02/24/2024 Has Tobacco Cessation Counseling Been Provided? No Information not available 02/24/2024 How Many Years Have You Smoked Tobacco? 15 Information not available 02/24/2024 Do You Or Have You Ever Used Any Other Forms Of Tobacco Or Nicotine? No Information not available 02/24/2024 Sex: Male Functional Status Question Answer Note LastModified by Organization D etails LastModified Time Are you able to care for yourself? Yes Information not available 02/24/2024 What is your exercise level? Moderate Information not available 02/24/2024 Mental Status None recorded. Family History Relationship Description Onset Age of this Age Resolved Age Notes LastModified by Organization Details LastModified Time Mother Alcohol abuse [email or web address] Not available 01/29 10:00:54 Mother Heart disease [email or web address] Not available 01/29 10:01:19 Mother Hypertensive disorder [email or web address] Not available 01/29 10:01:25 Brother Attention deficit hyperactivit y disorder [email or web address] Not available 10:01:00 Brother Malignant tumor of prostate bandersonma Not available 01/29 10:01:36 Sister Family history of breast cancer [email or web address] Not available 01/29 10:01:10 Father Malignant tumor of prostate bandersonma Not available 01/29 10:01:36 Medical History Condition Response Coronary Artery Disease N Other N Atrial Fibrillation N High Blood Pressure N Depression N COPD N Blood Clots N Anxiety Disorder N Muscle, Joint, or Bone Problems N Acid Reflux (GERD) N Cancer Y Stroke N High Cholesterol Y Liver Disease N Headaches N Kidney or Bladder Problems N Thyroid Problems N GI Problems N Skin Problems N Anemia N Heart Attack ([place]) N Diabetes N Seizures/Epilepsy N Asthma N Allergies N Hepatitis N Osteoporosis N Heart Failure N Immunizations Vaccine Type Date Status Note Provider Nam e and Address Organization Details Recorded Time Influenza, MDCK, quadrivalent, PF 8 completed [employer] null, [place] - [facility] 02/24/2024 10:47:14 zoster recombinant 0 completed [employer] [place] [facility] 02/24/2024 10:47:14 Influenza, high-dose, quadrivalent, PF 0 completed [employer] [place] [facility] 02/24/2024 10:47:14 Influenza, adjuvanted, quadrivalent, PF 3 completed [employer] [place] [facility] 02/24/2024 10:47:14 Influenza, adjuvanted, quadrivalent, PF 2 completed [employer] [place] [facility] 02/24/2024 10:47:14 COVID-19, mRNA, LNP-S, PF, 100 mcg/0.5mL dose or 50 mcg/0.25mL dose 1 completed [employer] [place] [facility] 02/24/2024 10:47:14 COVID-19, mRNA, LNP-S, PF, 30 mcg/0.3 mL dose 1 completed [employer] [place] [facility] 02/24/2024 10:47:14 COVID-19, mRNA, LNP-S, PF, 30 mcg/0.3 mL dose 1 completed [employer] [place] [facility] 02/24/2024 10:47:14 COVID-19, mRNA, LNP-S, bivalent, PF, 30 mcg/0.3 mL dose 2 completed [employer] [place] [facility] 02/24/2024 10:47:14 COVID-19, mRNA, LNP-S, PF, albert-sucrose, 30 mcg/0.3 mL 3 completed [employer] [place] [facility] 02/24/2024 10:47:14 pneumococcal polysaccharide PPV23 3 completed [employer] [place] [facility] 02/24/2024 10:47:14 Tdap 8 completed [employer] [place] [facility] 02/24/2024 10:47:14 Tdap 7 completed [employer] [place] [facility] 02/24/2024 10:47:14 Tdap 3 completed [employer] [place] [facility] 02/24/2024 10:47:14 Td (adult), 2 Lf tetanus toxoid, preservative free, adsorbed 7 completed [employer] [place] [facility] 02/24/2024 10:47:14 Influenza, split virus, quadrivalent, PF 6 completed [employer] null, [place] - [facility] 02/24/2024 10:47:14 Pneumococcal conjugate PCV20, polysaccharide [id number] conjugate, adjuvant, PF 4 completed Maya Cramer MD Attn: [employer] [place], [address], [facility] - [facility] 02/26/2024 09:34:46 Past Encounters Encounter ID Performer Location Encounter Start Date Encounter Closed Date Diagnosis/Indication Diagnosis SNOMED-CT Code Diagnosis ICD10 Code Diagnosis Note [id number] Maya Cramer MD [facility], [facility] [employer] [facility] [place] [address] [place] [address] 02/24/2024 09:46:02 02/24/2024 11:10:50 Administration of pneumococcal vaccine 74096214 Z23 Hyperlipidemia 66928016 E78.5 Prostate s pecific antigen above reference range 856615829 R97.20 [id number] Maya Cramer MD [facility], [facility] [employer] [facility] [place] [address] [place] [address] 08/17/2024 10:17:00 08/17/2024 11:15:46 Body mass index 20-24 - normal 492842619 Z68.24 Hyperlipidemia 28345568 E78.5 Bilateral hearing loss 61233962 H91.93 [id number] Justin Nielson MA [facility], [facility] [employer] [facility] [place] [address] [place] [address] 10/30/2024 15:53:01 10/30/2024 16:56:45 Pre-surgery evaluation 326089948 Z01.818 Health Concerns Section Related Observation LastModified by Organization Detai ls LastModified Time None Recorded Concern Status LastModified by Organization Details LastModified Time None Recorded Advance Directives Directive N: Payers Encounter Date Sequence Insurance Name Policy Number Policy Padilla Covered Member ID Padilla Member ID Guarantor Name 02/24/2024 1 [employer] (MEDICARE REPLACEMENT/A DVANTAGE - HMO) Mark Moore [id number] Mark Moore 08/17/2024 1 [employer] (MEDICARE REPLACEMENT/A DVANTAGE - HMO) Mark Moore [id number] Mark Moore Notes Date Note Type Note Provider Name and Address Organization Details Recorded Time 02/24/2024 text/html follow up medica l problems mildly elevated cholesterol trying to follow a low-fat diet 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 Does have an elevated PSA and needs to see Urology Maya Cramer MD Attn: [employer] [facility], [place], [address], [facility] - [facility] 02/26/2024 09:36:32 08/17/2024 text/html had his colonoscopy done not too long ago does not want a flu shot feels good elevated PSA following with Urology has had some problems with decreased hearing Maya Cramer MD Attn: [employer] , [place], [address], [place] [facility] 08/19/2024 15:39:51
--- OUTSIDE RECORDS SUMMARY | 2024-11-06 00:13 | XMS_ITS | Clinical Summary ---
Author Organization [facility] [address] Address [address] [place] [address] Care Team Providers Care Medical Record Technician Name Role Phone Eligio Cramer MD Primary Care Provider + [phone] Allergies No known active allergies Medications tadalafiL (CIALIS) 20 mg tablet Take 1 tablet (20 mg total) by mouth daily as needed Active acetaminophen (TYLENOL) 500 mg tablet Take 1 tablet (500 mg total) by mouth every 6 (six) hours as needed for pain Active ibuprofen (ADVIL,MOTRIN) 600 mg tablet Take 1 tablet (600 mg total) by mouth every 6 (six) hours as needed for pain Active cetirizine (ZyrTEC) 10 mg tablet Take 1 tablet (10 mg total) by mouth as needed for allergies Active Active Problems Problem Noted Date Diagnosed Date Prostate cancer 10/12/2024 Encounters Date Type Department Care Team Description 11/01/2024 Results Follow-Up [facility] Orthopedics and Sports Medicine [address] [place] [phone] Miley Jackson MD 10/31/2024 9:30 AM CHART PICKER Pre-Admission Testing [facility] PreAdmission Testing [address] [place] [address] Prostate cancer (HCC); Pre-op testing 10/31/2024 Orders Only [facility] PreAdmission Testing [address] [place] [address] Myrna Wilde RN 10/27/2024 Orders Only [facility] Pre[facility]mission Testing [address] [place] [address] Cuca Joe RN Pre-op testing (Primary Dx) 10/16/2024 Orders Only [facility] Surgery [address] [place] [address] [place] [phone] Miley Jackson MD Urinary tract infection without hematuria, site unspecified (Primary Dx) 10/02/2024 [facility] Advanced Medicine ([facility]) - [facility] Urology [address] [facility] Advanced Medicine 11th [place] [address] [place] [address] Bianka Peoples 09/25/2024 8:35 PM CHART PICKER - 09/25/2024 11:59 PM CHART PICKER Hospital Encounter [facility] Radiology [facility] ([facility]) [address] [place] [address] Discharge Disposition: Discharge to home or self care 09/25/2024 5:02 PM CHART PICKER - 09/25/2024 11:59 PM CHART PICKER Hospital Encounter [facility] [address] [place] [address] Prostate cancer (HCC) Discharge Disposition: Discharge to home or self care 09/25/2024 3:00 PM CHART PICKER Office Visit [facility] Surgery [address] [place] [address] [place] [phone] Miley Jackson MD Prostate cancer (HCC) (Primary Dx) from Last 3 Months Surgical History Surgery Date Site/Laterality Comments KNEE ARTHROSCOPY 2013 Left Arthroscopy knee INGUINAL HERNIA REPAIR 08/30/2004 - 08/29/2005 Bilateral (X3) FINGER TENDON REPAIR 1ST FINGER AND THUMB; REPAIR D/T TABLESAW INJURY PROSTATE BIOPSY CATARACT EXTRACTION Bilateral Social History Tobacco Use Types Packs/Day Years Used Date Smoking Tobacco: Former Cigarettes Smokeless Tobacco: Never Tobacco Cessation:Counseling Given: Not Answered AUDIT-C Answer Date Recorded Q1: How often do you have a drink containing alcohol? 4 or more times a week 10/31/2024 Q2: How many drinks containi ng alcohol do you have on a typical day when you are drinking? 1 or 2 Q3: How often do you have si x or more drinks on one occasion? Never 10/31/2024 Personal Safety Answer Date Recorded Have you ever been in or are you currently in a harmful physical or emotional relationship or is someone making you feel afraid or unsafe? Denies 10/31/2024 Sex and Gender Information Value Date Recorded Sex Assigned at Not on file Legal Sex Male 11:11 AM CHART PICKER Gender Identity Not on file Sexual Orientation Not on file Obstetrics History Last Filed Vital Signs Vital Sign Reading Time Taken Comments Blood Pressure 122/78 10/31/2024 9:38 AM CHART PICKER lt upper arm Pulse 54 10/31/2024 9:38 AM CHART PICKER Temperature 36.3 C (97.3 F) 10/31/2024 9:38 AM CHART PICKER Respiratory Rate 16 10/31/2024 9:38 AM CHART PICKER Oxygen Saturation 98% 10/31/2024 9:38 AM CHART PICKER Inhaled Oxygen Concentration - - Weight 79.8 kg (176 lb) 10/31/2024 9:38 AM CHART PICKER Height 177.8 cm (5' 10 ) 10/31/2024 9:38 AM CHART PICKER Body Mass Index 25.25 10/31/2024 9:38 AM CHART PICKER Plan of Treatment Upcoming Encounters Date Type Department Care Team (Latest Contact Info) Description 11/14/2024 9:25 AM CDT Hospital Encounter [facility] OR [address] [place] [address] Miley Jackson MD [address] [facility] [place] [address] 11/14/2024 9:25 AM CDT Anesthesia Event [facility] [place] [facility] OR [address] [place] [address] Manisha Stevenson [employer] [address] [place] [address] 11/14/2024 9:25 AM CDT - 11/14/2024 3:25 PM CDT Surgery [facility] [place] [facility] OR [address] [place] [address] Al-Miley Boateng MD [address] [place] [address] ROBOTIC ASSISTED LAPAROSCOPIC PROSTATECTOMY Scheduled Procedures Name Priority Associated Diagnoses Date/Ti me XI PROSTATECTOMY - LAPAROSCOPIC ROBOTIC ASSISTED Prostate cancer (HCC) 11/14/2024 9:25 AM CDT XI ROBOTIC PELVIC LYMPH NODE Prostate cancer (HCC) 11/14/2024 9:25 AM CDT Health Maintenance Due Date Last Done Comments Colon Cancer Screening-Colonoscopy 1955 Depression Screening 1955 Hepatitis C Screening 1955 Hepatitis B Screening 12/17/1971 Well Visit 65+ 2018 Zoster Vaccine (2 of 2) 08/09/2020 06/14/2020 Covid-19 Vaccine (5 - 2023-2 5 season) 2024 07/17/2022, 08/16/2021, 11/07/2020, Additional history exists Influenza Vaccine (#1) 2024 , 06/14/2020, 11/13/2017, Additional history exists Pneumococcal vaccine 65+ (2 of 2 - PCV) 06/28/2024 06/28/2023 Fall Risk Assessment 10/31/2025 10/31/2024 DTaP/Tdap/Td Vaccine (5 - Td or Tdap) 11/15/2027 11/14/2017, 03/18/2017, 03/18/2017, Additional history exists Abdominal Aortic Aneurysm (A AA) Screen Completed 11/05/2019 Procedures Procedure Name Priority Date/Time Associated Diagnosis Comments EGFR Routine 10/31/2024 9:25 AM CHART PICKER Prostate cancer (HCC) DIFFERENTIAL AUTO Routine 10/31/2024 9:2 5 AM CHART PICKER Prostate cancer (HCC) ANTIBODY SCREEN Routine 10/31/2024 9:25 AM CHART PICKER Pre-op testing ABO/RH Routine 10/31/2024 9:25 AM CHART PICKER Pre-op testing TYPE AND SCREEN 14 DAY Routine 10/31/2024 9:25 AM CHART PICKER Pre-op testing BASIC METABOLIC PANEL Routine 10/31/2024 9:25 AM CHART PICKER Prostate cancer (HCC) CBC WITH AUTO DIFFERENTIAL Routine 10/31/2024 9:25 AM CHART PICKER Prostate cancer (HCC) URINALYSIS AND REFLEX TO MICROSCOPIC AND CULTURE Routine 10/31/2024 9:25 AM CHART PICKER Prostate cancer (HCC) ECG 12-LEAD Routine 10/31/2024 9:18 AM CHART PICKER Pre-op testing PET OUTSIDE REFERENCE Routine 09/25/2024 8:35 PM CHART PICKER MEASURE POST VOID RESIDUAL Routine 09/25/2024 3:18 PM CHART PICKER Prostate cancer (HCC) URINALYSIS AND REFLEX TO MICROSCOPIC AND CULTURE Routine 09/25/2024 3:07 PM CHART PICKER Prostate cancer (HCC) POCT URINALYSIS DIPSTICK Routine 09/25/2024 3:06 PM CHART PICKER Prostate cancer (HCC) from Last 3 Months Results * eGFR (10/31/2024 9:25 AM CHART PICKER) eGFR 86 >=60 mL/min/1. 73 m2 Comment: Interpretive Data Reference Interval Normal >/= 90 mL/min/1.73m2 Mildly decreased* 60 - 89 mL/min/1.73m2 Mildly to moderately decreased 45 - 59 mL/min/1.73m2 Moderately to severely decreased 30 - 44 mL/min/1.73m2 Severely decreased 15 - 29 mL/min/1.73m2 Kidney Failure < 15 mL/min/1.73m2 *Relative to young adult level Estimated glomerular filtration rate is determined by the 2020 CKD-EPI equation recommended by the National Kidney Foundation (A Unifying Approach to GFR Estimation: Recommendations of the NKF-ASK Task Force on Reassessing the Inclusion of Race in Diagnosing Kidney Disease, JASN 2020). The CKD-EPI equation should not be used for patients with unstable renal function and has not been validated in children and those over 70. Current interpretive data was last reviewed 2021. Blood 10/31/2024 9:25 AM CHART PICKER 10/31/2024 9:30 AM CHART PICKER us Miley Jackson MD LAB BLOOD ORDERABLES Final Result [facility] [address] [place] [address] * Differential, auto (10/31/2024 9:25 AM CHART PICKER) Pathologist [facility] Neutrophil abs 2.5 1.5 - 6.5 K/cumm Imm gran abs 0.0 0.0 - 0.1 K/cumm [facility] Lymphocyte abs 1.4 0.8 - 3.3 K/cumm [facility] Monocyte abs 0.5 0.2 - 0.8 K/cumm [facility] Eosinophil abs 0.1 0.0 - 0.5 K/cumm [facility] Basophil abs 0.1 0.0 - 0.1 K/cumm [facility] Neutrophil pct 55.2 % [facility] Comment: Interpretive Data Percent cell count reference ranges are not reported, since discordance with absolute values may lead to misinterpretation of CBC data. Current Interpretive Data was last revised on 2017. Imm gran pct 0.7 % [facility] Comment: Interpretive Data Percent cell count reference ranges are not reported, since discordance with absolute values may lead to misinterpretation of CBC data. Current Interpretive Data was last revised on 2017. Lymphocyte pct 30.3 % [facility] Comment: Interpretive Data Percent cell count reference ranges are not reported, since discordance with absolute values may lead to misinterpretation of CBC data. Current Interpretive Data was last revised on 2017. Monocyte pct 10.5 % [facility] Comment: Interpretive Data Percent cell count reference ranges are not reported, since discordance with absolute values may lead to misinterpretation of CBC data. Current Interpretive Data was last revised on 2017. Eosinophil pct 2.0 % [facility] Comment: Interpretive Data Percent cell count reference ranges are not reported, since discordance with absolute values may lead to misinterpretation of CBC data. Current Interpretive Data was last revised on 2017. Basophil pct 1.3 % [facility] Comment: Interpretive Data Percent cell count reference ranges are not reported, since discordance with absolute values may lead to misinterpretation of CBC data. Current Interpretive Data was last revised on 2017. Blood 10/31/2024 9:25 AM CHART PICKER 10/31/2024 9:30 AM CHART PICKER Miley Jackson MD LAB BLOOD ORDERABLES Final Result [facility] [address] Department of [facility] [place], [place] [id number] * Urinalysis reflex to microscopic and culture Urine, clean voided (10/31/2024 9:25 AM CHART PICKER) Color, ur Yellow Yellow Clarity, ur Clear Clear [facility] Specific gravity, ur 1.020 1.003 - 1.030 BANNERROSE MARIE pH, urine 6.5 [facility] Comment: Interpretive Data U rine pH is affected by diet, medications, systemic acid-base disturbances, and renal tubular function. pH may affect urinary stone formation. For example, urine pH below 6.0 may help reduce the tendency for calcium phosphate stones and pH greater than 6.0 may reduce the tendency for uric acid stone formation. Source: [facility] Current Interpretive Data was last revised on 2017 Protein, ur ql Negative Negative [facility] Glucose, ur ql Negative Negative [facility] Ketones, ur Negative Negative [facility] Bilirubin, ur Negative Negative [facility] Blood, ur Negative Negative [facility] Urobilinogen, ur <2.0 <2.0 mg/dL [facility] Nitrite, ur Negative Negative [facility] Leukocyte esterase, ur Negative Negative [facility] UA reflex comment Reflex conditions for microscopic UA and culture not met. [facility] Urine, clean voided 10/31/2024 9:25 AM CHART PICKER 10/31/2024 9:31 AM CHART PICKER Miley Jackson MD LAB MICROBIOLOGY - G ENERAL ORDERABLES Final Result Performing Organization Address City/[facility]/ZIP Co de Phone Number [address] [place] [address] * CBC with auto differential (10/31/2024 9:25 AM CHART PICKER) [facility] WBC 4.6 3.8 - 9.9 K/cumm Hgb 14.4 13.0 - 17.5 g/dL [facility] Hct 44.0 38.9 - 50.3 % [facility] Plt 192 150 - 400 K/cumm [facility] MPV 10.7 9.1 - 12.3 fL [facility] RBC 4.68 4.30 - 5.80 M/cumm [facility] MCV 94.0 81.3 - 96.4 fL [facility] MCH 30.8 27.1 - 33.3 pg [facility] MCHC 32.7 32.3 - 35.7 g/dL [facility] RDW CV 13.1 11.1 - 14.9 % [facility] RDW SD 45.1 35.7 - 48.1 fL [facility] NRBC abs 0.00 0.00 - 0.01 K/cumm [facility] Blood 10/31/2024 9:25 AM CHART PICKER 10/31/2024 9:30 AM CHART PICKER us Nikosef Lorena Jackson MD LAB BLOOD ORDERABLES Final Result Performing Organization Address [facility] Co de Phone Number [address] [address] * ABO/Rh (10/31/2024 9:25 AM CHART PICKER) [facility] ABO/Rh A Negative Blood 10/31/2024 9:25 AM CHART PICKER 10/31/2024 9:30 AM CHART PICKER Narrative [facility] - 10/31/2024 10:17 AM CHART PICKER Has the patient had Daratumumab or Isatuximab in the past 6 months?->Unknown Is this test being ordered in advance for a procedure?->Yes Expected date of procedure:->11/14/24 Has the patient been transfused in the past 3 months?->No Miley Jackson MD LAB BLOOD BANK TEST ORDERABLES Final Result Performing Organization Address [facility] Co de Phone Number [facility] [address] [address] * Antibody screen (10/31/2024 9:25 AM CHART PICKER) [facility] Audra, indirect, Gel Interpretation Negative ABSC Blood 10/31/2024 9:25 AM CHART PICKER 10/31/2024 9:30 AM CHART PICKER Narrative [facility] - 10/31/2024 10:17 AM CHART PICKER Has the patient had Daratumumab or Isatuximab in the past 6 months?->Unknown Is this test being ordered in advance for a procedure?->Yes Expected date of procedure:->11/14/24 Has the patient been transfused in the past 3 months?->No Cezar Lorena Jackson MD LAB BLOOD BANK TEST ORDERABLES Final Result Performing Organization Address [facility] de Phone Number [facility] [address] [address] * Basic metabolic panel (10/31/2024 9:25 AM CHART PICKER) [facility] Sodium 141 135 - 145 mmol/L Potassium, pl 4.1 3.3 - 4.9 mmol/L [facility] Chloride 109 97 - 110 mmol/L [facility] CO2 22 22 - 32 mmol/L [facility] Anion gap 10 2 - 15 mmol/L [facility] BUN 23 6 - 25 mg/dL [facility] Creatinine 0.95 0.80 - 1.30 mg/dL [facility] Glucose 126 70 - 199 mg/dL [facility] Comment: Interpretive Data Fasting glucose >/= 126 mg/dl is diagnostic for diabetes. Fasting is defined as no caloric intake for at least 8 hours. Fasting glucose between 100 mg/dl to 125 mg/dl is diagnostic of prediabetes. In a patient with classic symptoms of hyperglycemia or hyperglycemic crisis, a random glucose >/= 200 mg/dl is diagnostic for diabetes. In the absence of unequivocal hyperglycemia, results should be confirmed by repeat testing. The classification and Diagnosis of Diabetes Diabetes Care 2021; 46: S19-S40. Current interpretive data was last revised 2022. Calcium 9.1 8.5 - 10.3 mg/dL [facility] Blood 10/31/2024 9:25 AM CHART PICKER 10/31/2024 9:30 AM CHART PICKER us Miley Jackson MD LAB BLOOD ORDERABLES Final Result Performing Organization Address City/[facility]/ZIP Co de Phone Number [facility] [address] [place] [address] * ECG 12 lead (10/31/2024 9:18 AM CHART PICKER) Ventricular Rate EKG/Min 57 BPM [facility] Atrial Rate 57 BPM [facility] HI-Interval (MSEC) 168 ms [facility] QRS-Interval (MSEC) 108 ms [facility] QT-Interval (MSEC) 408 ms [facility] QTc 397 ms [facility] P Irving 32 degrees [facility] R Irving 72 degrees [facility] T Irving 63 degrees [facility] Diagnosis Sinus bradycardia Otherwise normal ECG No previous ECGs available Confirmed by CARLINE MANZO M.D. ([id number]) on 10/31/2024 8:28:27 PM [facility] 10/31/2024 9:18 AM CHART PICKER 10/31/2024 8:28 PM CHART PICKER Mansiha Stevenson NP ECG ORDERABLES Opal l Result Performing Organization Address City/[facility]/ZIP Co de Phone Number [facility] * PET Outside Reference (09/25/2024 8:35 PM CHART PICKER) Impressions RAD_[facility]ACS[facility] - 09/25/2024 8:35 PM CHART PICKER These images are for Reference purposes only and have not been reviewed by [facility] Radiology. There will be no report generated by a [facility] Radiologist. Narrative [facility] - 09/25/2024 8:35 PM CHART PICKER EXAMINATION: Images For Reference Purposes Only Miley Jackson MD IMG PET PROCEDURES F inal Result RAD_PACS_[facility] * Measure post void residual (09/25/2024 3:18 PM CHART PICKER) Narrative Livia Alvarez RMA - 09/25/2024 3:18 PM CHART PICKER Measurement of Post Void Residual urine and/or bladder capacity PVR = 10ml us Cezarf Lorena Jackson MD NURSING ASSESSMENTS Final Result * Urinalysis reflex to microscopic and culture Urine, bladder (09/25/2024 3:07 PM CHART PICKER) Color, ur Yellow Yellow Comment:Testing performed by : [address] [address] Clarity, ur Clear Clear [facility] Comment:Testing performed by : [address] [address] Specific gravity, ur 1.023 1.003 - 1.030 [facility] Comment:Testing performed by : [address] [address] pH, urine 7.0 [facility] Comment: Interpretive Data U rine pH is affected by diet, medications, systemic acid-base disturbances, and renal tubular function. pH may affect urinary stone formation. For example, urine pH below 6.0 may help reduce the tendency for calcium phosphate stones and pH greater than 6.0 may reduce the tendency for uric acid stone formation. Source: [facility] Current Interpretive Data was last revised on 2017 Testing performed by: [address] [address] Protein, ur ql Negative Negative [facility] Comment:Testing performed by : [address] [address] Glucose, ur ql Negative Negative [facility] Comment:Testing performed by : [address] [address] Ketones, ur Negative Negative [facility] Comment:Testing performed by : [address] [address] Bilirubin, ur Negative Negative [facility] Comment:Testing performed by : [facility], [address] [place] [address], [place]., [address] Blood, ur Negative Negative [facility] Comment:Testing performed by : [facility], [address] [place] [address], [place]., [address] Urobilinogen, ur <2.0 <2.0 mg/dL [facility] Comment:Testing performed by : [address], [place]., [address] Nitrite, ur Negative Negative [facility] Comment:Testing performed by : [address], [place]., [address] Leukocyte esterase, ur Negative Negative [facility] Comment:Testing performed by : [address], [place]., [address] UA reflex comment Reflex conditions for microscopic UA and culture not met. [facility] Comment:Testing performed by : [address] [address] Urine, bladder 09/25/2024 3: 07 PM CHART PICKER 09/25/2024 8:55 PM CHART PICKER us Yousef Lorena Jackson MD LAB MICROBIOLOGY - G ENERAL ORDERABLES Final Result [facility] [address] [place] [address] * (ABNORMAL) POCT urinalysis dipstick (09/25/2024 3:06 PM CHART PICKER) Color, Urine, POC Yellow Clarity, ur, POC Clear Clear Glucose, ur, POC Negative Negative MG/DL Bilirubin, ur, POC Negative Negative, Small, Moderate, Large Ketones, ur, POC Negative Negative Specific [place], POC 1.020 1.003 - 1.030 Blood, ur, POC Negative Negative pH, ur, POC 6.5 5.0 - 8.0 Protein, ur, POC Negative Negative Urobilinogen, urine, POC 0.2 0.2 - 1.0 mg/dL Nitrite, ur, POC Negative Negative Leukocytes, ur, POC Trace(A) Negative Lot Number 0 Urine 09/25/2024 3:06 PM CHART PICKER Miley Jackson MD POINT OF CARE TEST O RDERABLES Final Result from Last 3 Months Insurance MEDICARE O [employer] MEDICARE [employer] MEDICARE O Care Teams Medical Record Technician Relationship Specialty Start Date End Date Eligio Cramer MD PCP - General Internal Medicine 12/28/22
--- OUTSIDE RECORDS SUMMARY | 2024-11-06 00:13 | XMS_ITS | Encounter Summary ---
Author Organization [facility] Healthcare Address [address] [place] [address] Care Team Providers Care Aprn Name Role Phone Eligio Cramer MD Primary Care Provider + [phone] Encounter Details Date Type Department Care Team (Late st Contact Info) Description 11/01/2024 Results Follow-Up [facility] Orthopedics and Sports Medicine [address] [phone] Miley Jackson MD [address] [facility] [place] [address] Social History Tobacco Use Types Packs/Day Years Used Date Smoking Tobacco: Former Cigarettes Smokeless Tobacco: Never AUDIT-C Answer Date Recorded Q1: How often [...] on file Legal Sex Male 11:11 AM CHAPTER RELATIONS ADMINISTRATOR Gender Identity Not on file Sexual Orientation Not on file documented as of this encounter Plan of Treatment Upcoming Encounters Date Type Department Care Team (Latest Contact Info) Description 11/14/2024 9:25 AM CDT Hospital Encounter [facility] OR [address] [place] [phone] Miley Jackson MD [address] [place] [address] 11/14/2024 9:25 AM CDT Anesthesia Event [facility] OR [address] [place] [address] Manisha Stevenson NATUROPATHIC PHYSICIAN [address] [place] [phone] 11/14/2024 9:25 AM CDT - 11/14/2024 3:25 PM CDT Surgery [facility] OR [address] [place] [phone] Miley Jackson MD [address] [facility] [place] [address] ROBOTIC ASSISTED LAPAROSCOPIC PROSTATECTOMY Scheduled Procedures Name Priority Associated Diagnoses Date/Ti me XI PROSTATECTOMY - LAPAROSCOPIC ROBOTIC ASSISTED Prostate cancer (HCC) 11/14/2024 9:25 AM CDT XI ROBOTIC PELVIC LYMPH NODE Prostate cancer (HCC) 11/14/2024 9:25 AM CDT documented as of this encounter Visit Diagnoses Not on filedocumented in this encounter Care Teams Aprn Relationship Specialty Start Date End Date Eligio Cramer MD PCP - General Internal Medicine 12/28/22 documented as of this encounter
--- OUTSIDE RECORDS SUMMARY | 2024-11-06 00:13 | XMS_ITS | Clinical Summary ---
Author Organization [facility] Address [address] [place] [address] Care Team Providers Care Director Funeral Name Role Phone Eligio Cramer MD Primary Care Provider [phone] Source Comments [facility],non-owned Affiliates and Associated Physician Practices is amultiple site organization consisting of ambulatory clinics and hospital sitesin [place], [place], [place] and [place]. This disclosure is being madepursuant to the Care Everywhere program and may not contain all information available regarding this patient. Last updated 18.[facility] Allergies No known active allergies Medications * [...] 11/15/2019 3:40 PM CDT Plan of Treatment Health Maintenance Due Date Last Done Comments COLOGUARD (AGES 45-75) - COL ON CA SCREENING 1955 COLON MONITORING 1953 COLONOSCOPY - COLON CA SCREENING 1953 CT COLONOGRAPHY - COLON CA SCREENING 1953 Colorectal Cancer Screening 1953 FIT - COLON CA SCREENING 1953 FLEX SIG - COLON CA SCREENING 1953 LIPID TESTING 1953 HEPATITIS C SCREENING 12/12/1971 PNEUMOCOCCAL VACCINE 50+ (1 of 1 - PCV) 12/17/2003 ZOSTER VACCINE (1 of 2) 12/17/2003 COVID-19 VACCINE ( - 2023-2 5 season) 2024 INFLUENZA VACCINE (#1) 2024 11/14/2017 DEPRESSION SCREENING 08/30/2024 DTAP/TDAP/TD VACCINES (2 - T d or Tdap) 11/15/2027 11/14/2017 Respiratory Syncytial Virus (RSV) Vaccine Pt: or over 60 yrs (1 - 1-dose 75+ series) 2028 HEPATITIS B VACCINE Aged Out No longe r eligible based on patient's age to complete this topic HIB VACCINE Aged Out No longer eligi ble based on patient's age to complete this topic HPV VACCINE Aged Out No longer eligi ble based on patient's age to complete this topic MENINGOCOCCAL (Group B) VACCINE Aged Out No longer eligible based on patient's age to complete this topic MENINGOCOCCAL VACCINE Aged Out No biju vani eligible based on patient's age to complete this topic Care Teams Director Funeral Relationship Specialty Start Date End Date Eligio Cramer MD PCP - General Internal Medicine 11/14/17
--- OUTSIDE RECORDS SUMMARY | 2024-11-06 00:13 | XMS_ITS | Patient Health Summary ---
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 otherwise maintained. Vertebral bodies are normal in height without evidence of acute fracture. There is mild degenerative disc disease. No central canal stenosis is seen. There is mild facet osteoarthritis at multiple levels. No neural foraminal stenosis is seen. There is subsegmental atelectasis in the dependent portions of the lung bases. Lumbar spine: There is trace retrolisthesis of L3 over L4 and L4 over L5. Endplate degenerative changes at L5-S1. Vertebral bodies are normal in height without evidence of acute fracture. There is mild degenerative disc disease, with severe degenerative disc disease at L5-S1. Mild multilevel central canal stenosis is seen. There is mild facet osteoarthritis at multiple levels. There are varying degrees of neural foraminal stenosis at multiple levels, worse at L5-S1. There are degenerative changes of the SI joints. A cystic lesion in the right kidney, likely a simple renal cyst. There is atherosclerotic calcification of the abdominal aorta and its branch vessels. Procedure Note Estee Vo MD - 11/06/2019 CT HEAD WO CONTRAST, CT LUMBAR SPINE WO CONTRAST, CT THORACIC SPINE WO CONTRAST, CT CERVICAL SPINE WO CONTRAST DATE: 11/05/2019 2:14 PM EXAMINATION: 1.Computed tomography (CT) of the head without contrast 2.CT of the cervical spine without contrast 3.CT of the thoracic spine without contrast 4.CT of the lumbar spine without contrast HISTORY: Trauma TECHNIQUE: CT of the head and cervical spine was performed without contrast according to standard protocol. Reformatted axial, sagittal,and coronal images of the thoracic and lumbar spine were obtained by the technologist from a concurrently performed body CT and sent to the workstation for review. FINDINGS: No prior study is available for comparison at the time of this dictation. Head: No acute intra- or extra-axial fluid collections are identified. Thereis mild age-appropriate cerebral volume. The ventricles are nondilated. The basilar cisterns are patent. No mass effect or midline shift is seen.The zendejas-white matter differentiation is normal. There is vascular calcification of the carotid siphons. No acute calvarial fracture is identified.. The orbits appear normal. There is near complete opacification of the left maxillary sinus. There is a tubular radiopaque structure within the left maxillary sinus. The mastoid air cells are clear. Multiple radiopaque foreign bodies are seen overlying the left parietal scalp. Cervical spine: The alignment is normal. Vertebral bodies are normal in height without evidence of acute fracture. The craniocervical junction is normal. There is mild degenerative disc disease, worse at C6-C7. Borderline developmental spinal canal stenosis with superimposed multilevel degenerative changes, worst at C6-C7. There are varying degrees of mild facet osteoarthritis. There are varying degrees of mild uncovertebral joint osteoarthritis, worse on C6-C7, with varying degrees of neural foraminal stenosis worse at these levels. No soft tissue abnormality is identified. Thoracic spine: Mild dextrocurvature of the lumbar spine. The alignment is otherwise maintained. Vertebral bodies are normal in height without evidence of acute fracture. There is mild degenerative disc disease. No centralcanal stenosis is seen. There is mild facet osteoarthritis at multiple levels. No neural foraminal stenosis is seen. There is subsegmental atelectasisin the dependent portions of the lung bases. Lumbar spine: There is trace retrolisthesis of L3 over L4 and L4 over L5. Endplate degenerative changes at L5-S1. Vertebral bodies are normal in height without evidence of acute fracture. There is mild degenerative disc disease, with severe degenerative disc disease at L5-S1. Mild multilevel central canal stenosis is seen. There is mild facet osteoarthritis at multiple levels. There are varying degrees of neural foraminal stenosisat multiple levels, worse at L5-S1. There are degenerative changes of theSI joints. A cystic lesion in the right kidney, likely a simple renal cyst. There is atherosclerotic calcification of the abdominal aorta and its branch vessels. IMPRESSION: 1.No acute intracranial hemorrhage, mass effect, or midline shift. 2.No evidence of acute fracture in the cervical, thoracic, or lumbarspine. 3.Radiopaque foreign bodies overlying the left parietal scalp. 4.Complete opacification of the left maxillary sinus with a small radiopaque structure. Report dictated by Alfonso Gilmore MD (financial institution president) This report was approved by Alfonso Gilmore on 11/06/2019 10:12 AM . I, Dr. ESTEE OV have personally reviewed and interpreted this examination/study. This report was electronically signed by ESTEE VO on11/06/2019 10:12 AM . Rodríguez Torres MD CT ORDERABLES * CT CERVICAL SPINE WO CONTRAST - C-Spine Trauma, Spine fracture (11/05/2019 2:12 PM CDT) Anatomical Region Laterality Modality Spine Computed Tomogra phy 11/06/2019 7:09 AM CDT Impressions 11/06/2019 10:12 AM CDT IMPRESSION: 1.No acute intracranial hemorrhage, mass effect, or midline shift. 2.No evidence of acute fracture in the cervical, thoracic, or lumbar spine. 3.Radiopaque foreign bodies overlying the left parietal scalp. 4.Complete opacification of the left maxillary sinus with a small radiopaque structure. Report dictated by Alfonso Gilmore MD (financial institution president) This report was approved by Alfonso Gilmore on 11/06/2019 10:12 AM . I, Dr. ESTEE VO have personally reviewed and interpreted this examination/study. This report was electronically signed by ESTEE VO on 11/06/2019 10:12 AM . Narrative 11/06/2019 10:[address] HEAD WO CONTRAST, CT LUMBAR SPINE WO CONTRAST, CT THORACIC SPINE WO CONTRAST, CT CERVICAL SPINE WO CONTRAST DATE: 11/05/2019 2:14 PM EXAMINATION: 1.Computed tomography (CT) of the head without contrast 2.CT of the cervical spine without contrast 3.CT of the thoracic spine without contrast 4.CT of the lumbar spine without contrast HISTORY: Trauma TECHNIQUE: CT of the head and cervical spine was performed without contrast according to standard protocol. Reformatted axial, sagittal, and coronal images of the thoracic and lumbar spine were obtained by the technologist from a concurrently performed body CT and sent to the workstation for review. FINDINGS: No prior study is available for comparison at the time of this dictation. Head: No acute intra- or extra-axial fluid collections are identified. There is mild age-appropriate cerebral volume. The ventricles are nondilated. The basilar cisterns are patent. No mass effect or midline shift is seen. The zendejas-white matter differentiation is normal. There is vascular calcification of the carotid siphons. No acute calvarial fracture is identified.. The orbits appear normal. There is near complete opacification of the left maxillary sinus. There is a tubular radiopaque structure within the left maxillary sinus. The mastoid air cells are clear. Multiple radiopaque foreign bodies are seen overlying the left parietal scalp. Cervical spine: The alignment is normal. Vertebral bodies are normal in height without evidence of acute fracture. The craniocervical junction is normal. There is mild degenerative disc disease, worse at C6-C7. Borderline developmental spinal canal stenosis with superimposed multilevel degenerative changes, worst at C6-C7. There are varying degrees of mild facet osteoarthritis. There are varying degrees of mild uncovertebral joint osteoarthritis, worse on C6-C7, with varying degrees of neural foraminal stenosis worse at these levels. No soft tissue abnormality is identified. Thoracic spine: Mild dextrocurvature of the lumbar spine. The alignment is otherwise maintained. Vertebral bodies are normal in height without evidence of acute fracture. There is mild degenerative disc disease. No central canal stenosis is seen. There is mild facet osteoarthritis at multiple levels. No neural foraminal stenosis is seen. There is subsegmental atelectasis in the dependent portions of the lung bases. Lumbar spine: There is trace retrolisthesis of L3 over L4 and L4 over L5. Endplate degenerative changes at L5-S1. Vertebral bodies are normal in height without evidence of acute fracture. There is mild degenerative disc disease, with severe degenerative disc disease at L5-S1. Mild multilevel central canal stenosis is seen. There is mild facet osteoarthritis at multiple levels. There are varying degrees of neural foraminal stenosis at multiple levels, worse at L5-S1. There are degenerative changes of the SI joints. A cystic lesion in the right kidney, likely a simple renal cyst. There is atherosclerotic calcification of the abdominal aorta and its branch vessels. Procedure Note Estee Vo MD - 11/06/2019 CT HEAD WO CONTRAST, CT LUMBAR SPINE WO CONTRAST, CT THORACIC SPINE WO CONTRAST, CT CERVICAL SPINE WO CONTRAST DATE: 11/05/2019 2:14 PM EXAMINATION: 1.Computed tomography (CT) of the head without contrast 2.CT of the cervical spine without contrast 3.CT of the thoracic spine without contrast 4.CT of the lumbar spine without contrast HISTORY: Trauma TECHNIQUE: CT of the head and cervical spine was performed without contrast according to standard protocol. Reformatted axial, sagittal,and coronal images of the thoracic and lumbar spine were obtained by the technologist from a concurrently performed body CT and sent to the workstation for review. FINDINGS: No prior study is available for comparison at the time of this dictation. Head: No acute intra- or extra-axial fluid collections are identified. Thereis mild age-appropriate cerebral volume. The ventricles are nondilated. The basilar cisterns are patent. No mass effect or midline shift is seen.The zendejas-white matter differentiation is normal. There is vascular calcification of the carotid siphons. No acute calvarial fracture is identified.. The orbits appear normal. There is near complete opacification of the left maxillary sinus. There is a tubular radiopaque structure within the left maxillary sinus. The mastoid air cells are clear. Multiple radiopaque foreign bodies are seen overlying the left parietal scalp. Cervical spine: The alignment is normal. Vertebral bodies are normal in height without evidence of acute fracture. The craniocervical junction is normal. There is mild degenerative disc disease, worse at C6-C7. Borderline developmental spinal canal stenosis with superimposed multilevel degenerative changes, worst at C6-C7. There are varying degrees of mild facet osteoarthritis. There are varying degrees of mild uncovertebral joint osteoarthritis, worse on C6-C7, with varying degrees of neural foraminal stenosis worse at these levels. No soft tissue abnormality is identified. Thoracic spine: Mild dextrocurvature of the lumbar spine. The alignment is otherwise maintained. Vertebral bodies are normal in height without evidence of acute fracture. There is mild degenerative disc disease. No centralcanal stenosis is seen. There is mild facet osteoarthritis at multiple levels. No neural foraminal stenosis is seen. There is subsegmental atelectasisin the dependent portions of the lung bases. Lumbar spine: There is trace retrolisthesis of L3 over L4 and L4 over L5. Endplate degenerative changes at L5-S1. Vertebral bodies are normal in height without evidence of acute fracture. There is mild degenerative disc disease, with severe degenerative disc disease at L5-S1. Mild multilevel central canal stenosis is seen. There is mild facet osteoarthritis at multiple levels. There are varying degrees of neural foraminal stenosisat multiple levels, worse at L5-S1. There are degenerative changes of theSI joints. A cystic lesion in the right kidney, likely a simple renal cyst. There is atherosclerotic calcification of the abdominal aorta and its branch vessels. IMPRESSION: 1.No acute intracranial hemorrhage, mass effect, or midline shift. 2.No evidence of acute fracture in the cervical, thoracic, or lumbarspine. 3.Radiopaque foreign bodies overlying the left parietal scalp. 4.Complete opacification of the left maxillary sinus with a small radiopaque structure. Report dictated by Alfonso Gilmore MD (financial institution president) This report was approved by Alfonso Gilmore on 11/06/2019 10:12 AM . I, Dr. ESTEE VO have personally reviewed and interpreted this examination/study. This report was electronically signed by ESTEE VO on11/06/2019 10:12 AM . Rodríguez Torres MD CT ORDERABLES * CT HEAD WO CONTRAST - Head Trauma, CSF leak, mental status changes (11/05/2019 2:12 PM CDT) Anatomical Region Laterality Modality Head Computed Tomogra phy 11/06/2019 7:09 AM CDT Impressions 11/06/2019 10:12 AM CDT IMPRESSION: 1.No acute intracranial hemorrhage, mass effect, or midline shift. 2.No evidence of acute fracture in the cervical, thoracic, or lumbar spine. 3.Radiopaque foreign bodies overlying the left parietal scalp. 4.Complete opacification of the left maxillary sinus with a small radiopaque structure. Report dictated by Alfonso Gilmore MD (financial institution president) This report was approved by Alfonso Gilmore on 11/06/2019 10:12 AM . I, Dr. ESTEE VO have personally reviewed and interpreted this examination/study. This report was electronically signed by ESTEE VO on 11/06/2019 10:12 AM . Narrative 11/06/2019 10:[address] HEAD WO CONTRAST, CT LUMBAR SPINE WO CONTRAST, CT THORACIC SPINE WO CONTRAST, CT CERVICAL SPINE WO CONTRAST DATE: 11/05/2019 2:14 PM EXAMINATION: 1.Computed tomography (CT) of the head without contrast 2.CT of the cervical spine without contrast 3.CT of the thoracic spine without contrast 4.CT of the lumbar spine without contrast HISTORY: Trauma TECHNIQUE: CT of the head and cervical spine was performed without contrast according to standard protocol. Reformatted axial, sagittal, and coronal images of the thoracic and lumbar spine were obtained by the technologist from a concurrently performed body CT and sent to the workstation for review. FINDINGS: No prior study is available for comparison at the time of this dictation. Head: No acute intra- or extra-axial fluid collections are identified. There is mild age-appropriate cerebral volume. The ventricles are nondilated. The basilar cisterns are patent. No mass effect or midline shift is seen. The zendejas-white matter differentiation is normal. There is vascular calcification of the carotid siphons. No acute calvarial fracture is identified.. The orbits appear normal. There is near complete opacification of the left maxillary sinus. There is a tubular radiopaque structure within the left maxillary sinus. The mastoid air cells are clear. Multiple radiopaque foreign bodies are seen overlying the left parietal scalp. Cervical spine: The alignment is normal. Vertebral bodies are normal in height without evidence of acute fracture. The craniocervical junction is normal. There is mild degenerative disc disease, worse at C6-C7. Borderline developmental spinal canal stenosis with superimposed multilevel degenerative changes, worst at C6-C7. There are varying degrees of mild facet osteoarthritis. There are varying degrees of mild uncovertebral joint osteoarthritis, worse on C6-C7, with varying degrees of neural foraminal stenosis worse at these levels. No soft tissue abnormality is identified. Thoracic spine: Mild dextrocurvature of the lumbar spine. The alignment is otherwise maintained. Vertebral bodies are normal in height without evidence of acute fracture. There is mild degenerative disc disease. No central canal stenosis is seen. There is mild facet osteoarthritis at multiple levels. No neural foraminal stenosis is seen. There is subsegmental atelectasis in the dependent portions of the lung bases. Lumbar spine: There is trace retrolisthesis of L3 over L4 and L4 over L5. Endplate degenerative changes at L5-S1. Vertebral bodies are normal in height without evidence of acute fracture. There is mild degenerative disc disease, with severe degenerative disc disease at L5-S1. Mild multilevel central canal stenosis is seen. There is mild facet osteoarthritis at multiple levels. There are varying degrees of neural foraminal stenosis at multiple levels, worse at L5-S1. There are degenerative changes of the SI joints. A cystic lesion in the right kidney, likely a simple renal cyst. There is atherosclerotic calcification of the abdominal aorta and its branch vessels. Procedure Note Estee Vo MD - 11/06/2019 CT HEAD WO CONTRAST, CT LUMBAR SPINE WO CONTRAST, CT THORACIC SPINE WO CONTRAST, CT CERVICAL SPINE WO CONTRAST DATE: 11/05/2019 2:14 PM EXAMINATION: 1.Computed tomography (CT) of the head without contrast 2.CT of the cervical spine without contrast 3.CT of the thoracic spine without contrast 4.CT of the lumbar spine without contrast HISTORY: Trauma TECHNIQUE: CT of the head and cervical spine was performed without contrast according to standard protocol. Reformatted axial, sagittal,and coronal images of the thoracic and lumbar spine were obtained by the technologist from a concurrently performed body CT and sent to the workstation for review. FINDINGS: No prior study is available for comparison at the time of this dictation. Head: No acute intra- or extra-axial fluid collections are identified. Thereis mild age-appropriate cerebral volume. The ventricles are nondilated. The basilar cisterns are patent. No mass effect or midline shift is seen.The zendejas-white matter differentiation is normal. There is vascular calcification of the carotid siphons. No acute calvarial fracture is identified.. The orbits appear normal. There is near complete opacification of the left maxillary sinus. There is a tubular radiopaque structure within the left maxillary sinus. The mastoid air cells are clear. Multiple radiopaque foreign bodies are seen overlying the left parietal scalp. Cervical spine: The alignment is normal. Vertebral bodies are normal in height without evidence of acute fracture. The craniocervical junction is normal. There is mild degenerative disc disease, worse at C6-C7. Borderline developmental spinal canal stenosis with superimposed multilevel degenerative changes, worst at C6-C7. There are varying degrees of mild facet osteoarthritis. There are varying degrees of mild uncovertebral joint osteoarthritis, worse on C6-C7, with varying degrees of neural foraminal stenosis worse at these levels. No soft tissue abnormality is identified. Thoracic spine: Mild dextrocurvature of the lumbar spine. The alignment is otherwise maintained. Vertebral bodies are normal in height without evidence of acute fracture. There is mild degenerative disc disease. No centralcanal stenosis is seen. There is mild facet osteoarthritis at multiple levels. No neural foraminal stenosis is seen. There is subsegmental atelectasisin the dependent portions of the lung bases. Lumbar spine: There is trace retrolisthesis of L3 over L4 and L4 over L5. Endplate degenerative changes at L5-S1. Vertebral bodies are normal in height without evidence of acute fracture. There is mild degenerative disc disease, with severe degenerative disc disease at L5-S1. Mild multilevel central canal stenosis is seen. There is mild facet osteoarthritis at multiple levels. There are varying degrees of neural foraminal stenosisat multiple levels, worse at L5-S1. There are degenerative changes of theSI joints. A cystic lesion in the right kidney, likely a simple renal cyst. There is atherosclerotic calcification of the abdominal aorta and its branch vessels. IMPRESSION: 1.No acute intracranial hemorrhage, mass effect, or midline shift. 2.No evidence of acute fracture in the cervical, thoracic, or lumbarspine. 3.Radiopaque foreign bodies overlying the left parietal scalp. 4.Complete opacification of the left maxillary sinus with a small radiopaque structure. Report dictated by Alfonso Gilmore MD (financial institution president) This report was approved by Alfonso Gilmore on 11/06/2019 10:12 AM . I, Dr. ESTEE VO have personally reviewed and interpreted this examination/study. This report was electronically signed by ESTEE VO on11/06/2019 10:12 AM . Rodríguez Torres MD CT ORDERABLES * XR CHEST 1VW PORTABLE (11/05/2019 1:45 PM CDT) Anatomical Region Laterality Modality Chest Radiographic Ana ging 11/05/2019 1:49 PM CDT Impressions 11/06/2019 9:03 AM CDT IMPRESSION: No acute cardiopulmonary process detected radiographically. Dictated by Elenita Thompson MD (financial institution president). Dr. ROBBIE Vivas M.D. have personally reviewed and interpreted this examination/study. This report was electronically signed by ROBBIE ALDANA M.D. on 11/06/2019 9:03 AM . Narrative 11/06/2019 9:03 AM CDT EXAMINATION: XR CHEST 1VW PORTABLE HISTORY: Trauma COMPARISON: No prior study is available for comparison. FINDINGS: There is no focal consolidation, pleural effusion, or pneumothorax. The cardiomediastinal silhouette is normal. The visible bony thorax is intact. Procedure Note Robbie Aldana MD - 11/06/2019 EXAMINATION: XR CHEST 1VW PORTABLE HISTORY: Trauma COMPARISON: No prior study is available for comparison. FINDINGS: There is no focal consolidation, pleural effusion, or pneumothorax. The cardiomediastinal silhouette is normal. The visible bony thorax isintact. IMPRESSION: No acute cardiopulmonary process detected radiographically. Dictated by Elenita Thompson MD (financial institution president). Dr. ROBBIE Vivas M.D. have personally reviewed and interpretedthis examination/study. This report was electronically signed by ROBBIE ALDANA M.D. on11/06/2019 9:03 AM . Rodríguez Torres MD DIAGNOSTIC IMAGING O RDERABLES * XR PELVIS 1 OR 2VW (11/05/2019 1:45 PM CDT) Anatomical Region Laterality Modality Pelvis Radiographic Ana ging 11/05/2019 1:48 PM CDT Impressions 11/06/2019 9:04 AM CDT IMPRESSION: No acute fracture or dislocation identified. Dictated by Elenita Thompson MD (microarray operations vice president). Dr. ROBBIE Vivas M.D. have personally reviewed and interpreted this examination/study. This report was electronically signed by ROBBIE ALDANA M.D. on 11/06/2019 9:04 AM . Narrative 11/06/2019 9:04 AM CDT EXAMINATION: XR PELVIS 1 OR 2VW HISTORY: Trauma Fracture suspected COMPARISON: No prior study is available for comparison. FINDINGS: No acute fracture is identified. The bilateral hip joint spaces are preserved. The pubic symphysis is intact. The osseous architecture and density are normal. The sacroiliac joints are normal. Procedure Note Robbie Aldana MD - 11/06/2019 EXAMINATION: XR PELVIS 1 OR 2VW HISTORY: Trauma Fracture suspected COMPARISON: No prior study is available for comparison. FINDINGS: No acute fracture is identified. The bilateral hip joint spaces are preserved. The pubic symphysis is intact. The osseous architecture and density are normal. The sacroiliac joints are normal. IMPRESSION: No acute fracture or dislocation identified. Dictated by Elenita Thompson MD (microarray operations vice president). I, Dr. ROBBIE ALDANA M.D. have personally reviewed and interpretedthis examination/study. This report was electronically signed by ROBBIE ALDANA M.D. on11/06/2019 9:04 AM . Rodríguez Torres MD DIAGNOSTIC IMAGING O RDERABLES * PT-INR [facility] (11/05/2019 1:30 PM CDT) PT 12.1 12.1 - 14.8 Seconds 11/05/2019 1:50 PM CDT [facility] INR 0.9 See Comment 11/05/2019 1:50 PM CDT [facility] Comment:The suggested therap eutic range for standard coumadin (warfarin) therapy is an INR of 2.0-3.0. For high-risk patients (Mechanical Mitral Valve Prosthesis, etc.), the suggested prophylactic therapeutic range is an INR of 2.5-3.5. Blood BLOOD SPECIMEN / Unknown Venipuncture / Unknown 11/05/2019 1:30 PM CDT 11/05/2019 1:33 PM CDT Rodríguez Torres MD LAB - COAGULATION OR DERABLES [address] [phone] * TYPE + SCREEN PANEL (11/05/2019 1:30 PM CDT) Antibody Screen NEG 0 2:21 PM CDT [facility] BLOOD BANK LAB ABO Rh A NEG 11/05/2019 2:21 PM CDT [facility] LAB Blood Bank BLOOD SPECIMEN / Unknown Venipuncture / Unknown 11/05/2019 1:30 PM CDT 11/05/2019 1:35 PM CDT Rodríguez Torres MD LAB - BLOOD BANK ORD ERABLES [facility] BLOOD BANK LAB [address] * (ABNORMAL) CBC W AUTO DIFFERENTIAL (11/05/2019 1:30 PM CDT) Pathologist [facility] WBC 10.0 3.5 - 10.5 10 3/uL 11/05/2019 1:35 PM CDT [facility] RBC 4.35 4.30 - 5.70 10 6/uL 11/05/2019 1:35 PM [facility] Hemoglobin 13.0(L) 13.5 - 17.5 g/dL 11/05/2019 1:35 PM [facility] Hematocrit 40.7 39.0 - 50.0 % 11/05/2019 1:35 PM [facility] MCV 93.6 81.0 - 97.0 fL 11/05/2019 1:35 PM T [facility] MCH 29.9 28.0 - 34.0 pg 11/05/2019 1:35 PM T [facility] MCHC 31.9(L) 32.0 - 36.0 g/dL 11/05/2019 1:35 PM [facility] Platelet Count 257 150 - 400 10 3/uL 11/05/2019 1:35 PM [facility] RDW-SD 45.4 36.0 - 50.0 fL 11/05/2019 1:35 PM [facility] RDW-CV 13.2 11.2 - 14.8 % 11/05/2019 1:35 PM [facility] MPV 10.5 9.3 - 12.8 fL 11/05/2019 1:35 PM [facility] nRBC Absolute 0.00 0 10 3/uL 11/05/2019 1:35 PM [facility] nRBC Auto 0.0 0 /100 WBC 11/05/2019 1:35 PM [facility] Neutrophils % 71.5(H) 35.0 - 70.0 % 11/05/2019 1:35 PM [facility] Lymphocytes % 19.4(L) 19.7 - 55.1 % 11/05/2019 1:35 PM [facility] Monocytes % 7.4 3.0 - 15.0 % 11/05/2019 1:35 PM [facility] Eosinophils % 0.4 0.0 - 6.0 % 11/05/2019 1:35 PM [facility] Basophil % 0.5 0.0 - 1.5 % 11/05/2019 1:35 PM [facility] Neutrophils Absolute 7.1(H) 1.6 - 7.0 10 3/uL 11/05/2019 1:35 PM [facility] Lymphocyte Absolute 1.9 0.8 - 2.9 10 3/uL 11/05/2019 1:35 PM [facility] Monocytes Absolute 0.74(H) 0.14 - 0.66 10 3/uL 11/05/2019 1:35 PM [facility] Eosinophils Absolute 0.04 0.00 - 0.45 10 3/uL 11/05/2019 1:35 PM [facility] Basophils Absolute 0.05 0.00 - 0.06 10 3/uL 11/05/2019 1:35 PM [facility] Immature Granulocytes % 0.8 0.0 - 1.0 % 11/05/2019 1:35 PM [facility] Blood BLOOD SPECIMEN / Unknown Venipuncture / Unknown 11/05/2019 1:30 PM CDT 11/05/2019 1:33 PM CDT Rodríguez Torres MD LAB - HEMATOLOGY ORD ERABLES [facility] [address] [phone] * (ABNORMAL) BASIC METABOLIC PANEL (CALCIUM TOTAL) (11/05/2019 1:30 PM CDT) Pathologist [facility] BUN 20 7 - 26 mg/dL 11/05/2019 1:48 PM T [facility] Creatinine 1.0 0.6 - 1.2 mg/dL 11/05/2019 1:48 PM T [facility] Sodium 142 136 - 145 mmol/L 11/05/2019 1:48 PM [facility] Potassium 4.0 3.5 - 4.5 mmol/L 11/05/2019 1:48 PM T [facility] Chloride 108(H) 98 - 107 mmol/L 11/05/2019 1:48 PM [facility] CO2 23 22 - 29 mmol/L 11/05/2019 1:48 PM T [facility] Glucose 128(H) 70 - 115 mg/dL 11/05/2019 1:48 PM T [facility] Calcium 9.2 8.4 - 10.2 mg/dL 11/05/2019 1:48 PM [facility] Anion Gap 15 8 - 18 11/05/2019 1:48 PM [facility] BUN/Creatinine Ratio 20 7 - 23 11/05/2019 1:48 PM [facility] Osmolality Calculated 298 270 - 300 mOsm/kg 11/05/2019 1:48 PM [facility] eGFR >60 >60 mL/min/1.7 3 m2 11/05/2019 1:48 PM [facility] Blood BLOOD SPECIMEN / Unknown Venipuncture / Unknown 11/05/2019 1:30 PM CDT 11/05/2019 1:33 PM CDT Rodríguez Torres MD LAB - CHEMISTRY [place] Organization Address City/State/ZIP Co de Phone Number [facility] [address] [phone] * ALCOHOL ETHYL BLOOD (11/05/2019 1:30 PM CDT) Pathologist [facility] Interpretation Ethanol None Detected None Detected mg/dL 11/05/2019 1:48 PM CDT [facility] Comment:Ethanol levels less than 10 mg/dL are resulted as None detected . Blood BLOOD SPECIMEN / Unknown Venipuncture / Unknown 11/05/2019 1:30 PM CDT 11/05/2019 1:33 PM CDT Rodríguez Torres MD LAB - CHEMISTRY [place] Organization Address City/State/ZIP Co de Phone Number [facility] [address] [place] [address] Care Teams Log Washer Relationship Specialty Start Date End Date Eligio Cramer MD PCP - General Internal Medicine 11/14/17
--- OUTSIDE RECORDS SUMMARY | 2024-11-06 00:13 | XMS_ITS | Referral Summary ---
Author Organization [facility] [address] Address [address] [place] [address] Care Team Providers Care Stemmer Machine Name Role Phone Eligio Cramer MD Primary Care Provider Encounters Date Type Department Care Team Description 11/01/2024 Results Follow-Up [facility] Orthopedics and Sports Medicine [address] [facility] [address] [place] [address] Miley Jackson MD 10/31/2024 Orders Only [facility] PreAdmission Testing [address] [place] [address] Myrna Wilde RN 10/31/2024 9:30 AM MINES INSPECTOR Pre-Admission Testing [facility] PreAdmission Testing [address] [place] [address] Prostate cancer (HCC); Pre-op testing 10/27/2024 Orders Only [facility] PreAdmission Testing [address] [place] [address] Cuca Joe, JESSE Pre-op testing (Primary Dx) 10/16/2024 Orders Only [facility] [address] [facility] [address] [place] [phone] Miley Jackson MD Urinary tract infection without hematuria, site unspecified (Primary Dx) 10/02/2024 [facility] Advanced [facility]) - [facility] Urology [address] [facility] Advanced Medicine 11th [place] [address] [place] [address] Bianka Peoples 09/25/2024 8:35 PM MINES INSPECTOR - 09/25/2024 11:59 PM MINES INSPECTOR Hospital Encounter [facility] ([place]) [address] [place] [address] Discharge Disposition: Discharge to home or self care 09/25/2024 5:02 PM MINES INSPECTOR - 09/25/2024 11:59 PM MINES INSPECTOR Hospital Encounter [facility] [address] [place] [address] Prostate cancer (HCC) Discharge Disposition: Discharge to home or self care 09/25/2024 3:00 PM MINES INSPECTOR Office Visit [facility] [address] [facility] [address] [place] [phone] Miley Jackson MD Prostate cancer (HCC) (Primary Dx) from Last 3 Months Allergies No known active allergies Medications tadalafiL [...] Noted Date Diagnosed Date Prostate cancer 10/12/2024 Social History Tobacco Use Types Packs/Day Years [...] on file Legal Sex Male 11:11 AM MINES INSPECTOR Gender Identity Not on file Sexual Orientation Not on file Last Filed Vital Signs Vital Sign Reading Time Taken Comments Blood Pressure 122/78 10/31/2024 9:38 AM MINES INSPECTOR lt upper arm Pulse 54 10/31/2024 9:38 AM MINES INSPECTOR Temperature 36.3 C (97.3 F) 10/31/2024 9:38 AM MINES INSPECTOR Respiratory Rate 16 10/31/2024 9:38 AM MINES INSPECTOR Oxygen Saturation 98% 10/31/2024 9:38 AM MINES INSPECTOR Inhaled Oxygen Concentration - - Weight 79.8 kg (176 lb) 10/31/2024 9:38 AM MINES INSPECTOR Height 177.8 cm (5' 10 ) 10/31/2024 9:38 AM MINES INSPECTOR Body Mass Index 25.25 10/31/2024 9:38 AM MINES INSPECTOR Plan of Treatment Upcoming Encounters Date Type Department Care Team (Latest Contact Info) Description 11/14/2024 9:25 AM CDT Hospital Encounter [facility] OR [address] [place] [phone] Miley Jackson MD [address] [place] [address] 11/14/2024 9:25 AM CDT Anesthesia Event [address] [address] Manisha Stevenson COMMUNITY [employer]IVING COACH [address] [place] [address] 11/14/2024 9:25 AM CDT - 11/14/2024 3:25 PM CDT Surgery [address] [address] Miley Jackson MD [address] [facility] [place] [address] ROBOTIC ASSISTED LAPAROSCOPIC PROSTATECTOMY Scheduled Procedures Name Priority Associated Diagnoses Date/Ti me XI PROSTATECTOMY - LAPAROSCOPIC ROBOTIC ASSISTED Prostate cancer (HCC) 11/14/2024 9:25 AM CDT XI ROBOTIC PELVIC LYMPH NODE Prostate cancer (HCC) 11/14/2024 9:25 AM CDT Procedures Procedure Name Priority Date/Time Associated Diagnosis Comments EGFR Routine 10/31/2024 9:25 AM MINES INSPECTOR Prostate cancer (HCC) DIFFERENTIAL AUTO Routine 10/31/2024 9:2 5 AM MINES INSPECTOR Prostate cancer (HCC) ANTIBODY SCREEN Routine 10/31/2024 9:25 AM MINES INSPECTOR Pre-op testing ABO/RH Routine 10/31/2024 9:25 AM MINES INSPECTOR Pre-op testing TYPE AND SCREEN 14 DAY Routine 10/31/2024 9:25 AM MINES INSPECTOR Pre-op testing BASIC METABOLIC PANEL Routine 10/31/2024 9:25 AM MINES INSPECTOR Prostate cancer (HCC) CBC WITH AUTO DIFFERENTIAL Routine 10/31/2024 9:25 AM MINES INSPECTOR Prostate cancer (HCC) URINALYSIS AND REFLEX TO MICROSCOPIC AND CULTURE Routine 10/31/2024 9:25 AM MINES INSPECTOR Prostate cancer (HCC) ECG 12-LEAD Routine 10/31/2024 9:18 AM MINES INSPECTOR Pre-op testing PET OUTSIDE REFERENCE Routine 09/25/2024 8:35 PM MINES INSPECTOR MEASURE POST VOID RESIDUAL Routine 09/25/2024 3:18 PM MINES INSPECTOR Prostate cancer (HCC) URINALYSIS AND REFLEX TO MICROSCOPIC AND CULTURE Routine 09/25/2024 3:07 PM MINES INSPECTOR Prostate cancer (HCC) POCT URINALYSIS DIPSTICK Routine 09/25/2024 3:06 PM MINES INSPECTOR Prostate cancer (HCC) from Last 3 Months Results * eGFR (10/31/2024 9:25 AM MINES INSPECTOR) eGFR 86 >=60 mL/min/1. 73 m2 Comment: [...] last reviewed 2021. Blood 10/31/2024 9:25 AM MINES INSPECTOR 10/31/2024 9:30 AM MINES INSPECTOR us Yousef Lorena Jackson MD LAB BLOOD ORDERABLES Final Result [facility] [address] [facility] [place] [address] * Differential, auto (10/31/2024 9:25 AM MINES INSPECTOR) Pathologist [facility] Neutrophil abs 2.5 1.5 - 6.5 K/cumm Imm gran abs 0.0 0.0 - 0.1 K/cumm [facility] Lymphocyte abs 1.4 0.8 - 3.3 K/cumm [facility] Monocyte abs 0.5 0.2 - 0.8 K/cumm [facility] Eosinophil abs 0.1 0.0 - 0.5 K/cumm [facility] Basophil abs 0.1 0.0 - 0.1 K/cumm [facility] Neutrophil pct 55.2 % [facility] Comment: Interpretive Data Percent cell count reference ranges are not reported, since discordance with absolute values may lead to misinterpretation of CBC data. Current Interpretive Data was last revised on 2017. Imm gran pct 0.7 % [facility] Comment: Interpretive Data Percent cell count reference ranges are not reported, since discordance with absolute values may lead to misinterpretation of CBC data. Current Interpretive Data was last revised on 2017. Lymphocyte pct 30.3 % [facility] Comment: Interpretive Data Percent cell count reference ranges are not reported, since discordance with absolute values may lead to misinterpretation of CBC data. Current Interpretive Data was last revised on 2017. Monocyte pct 10.5 % [facility] Comment: Interpretive Data Percent cell count reference ranges are not reported, since discordance with absolute values may lead to misinterpretation of CBC data. Current Interpretive Data was last revised on 2017. Eosinophil pct 2.0 % [facility] Comment: Interpretive Data Percent cell count reference ranges are not reported, since discordance with absolute values may lead to misinterpretation of CBC data. Current Interpretive Data was last revised on 2017. Basophil pct 1.3 % [facility] Comment: Interpretive Data Percent cell count reference ranges are not reported, since discordance with absolute values may lead to misinterpretation of CBC data. Current Interpretive Data was last revised on 2017. Blood 10/31/2024 9:25 AM MINES INSPECTOR 10/31/2024 9:30 AM MINES INSPECTOR us Yousef Lorena Jackson MD LAB BLOOD ORDERABLES Final Result [facility] [address] [facility] [place] [address] * Urinalysis reflex to microscopic and culture Urine, clean voided (10/31/2024 9:25 AM MINES INSPECTOR) Color, ur Yellow Yellow Clarity, ur Clear Clear [facility] Specific gravity, ur 1.020 1.003 - 1.030 DE[facility] pH, urine 6.5 [facility] Comment: Interpretive Data U rine pH is affected by diet, medications, systemic acid-base disturbances, and renal tubular function. pH may affect urinary stone formation. For example, urine pH below 6.0 may help reduce the tendency for calcium phosphate stones and pH greater than 6.0 may reduce the tendency for uric acid stone formation. Source: [facility] Current Interpretive Data was last revised on 2017 Protein, ur ql Negative Negative [facility] Glucose, ur ql Negative Negative [facility] Ketones, ur Negative Negative [facility] Bilirubin, ur Negative Negative [facility] Blood, ur Negative Negative [facility] Urobilinogen, ur <2.0 <2.0 mg/dL [facility] Nitrite, ur Negative Negative [facility] Leukocyte esterase, ur Negative Negative [facility] UA reflex comment Reflex conditions for microscopic UA and culture not met. [facility] Urine, clean voided 10/31/2024 9:25 AM MINES INSPECTOR 10/31/2024 9:31 AM MINES INSPECTOR us Miley Jackson MD LAB MICROBIOLOGY - G ENERAL ORDERABLES Final Result [facility] [address] [facility] [place] [address] * CBC with auto differential (10/31/2024 9:25 AM MINES INSPECTOR) WBC 4.6 3.8 - 9.9 K/cumm Hgb 14.4 13.0 - 17.5 g/dL [facility] Hct 44.0 38.9 - 50.3 % [facility] Plt 192 150 - 400 K/cumm [facility] MPV 10.7 9.1 - 12.3 fL [facility] RBC 4.68 4.30 - 5.80 M/cumm [facility] MCV 94.0 81.3 - 96.4 fL [facility] MCH 30.8 27.1 - 33.3 pg [facility] MCHC 32.7 32.3 - 35.7 g/dL [facility] RDW CV 13.1 11.1 - 14.9 % [facility] RDW SD 45.1 35.7 - 48.1 fL [facility] NRBC abs 0.00 0.00 - 0.01 K/cumm [facility] Blood 10/31/2024 9:25 AM MINES INSPECTOR 10/31/2024 9:30 AM MINES INSPECTOR Miley Jackson MD LAB BLOOD ORDERABLES Final Result Performing Organization Address [facility] Phone Number [address] [place] [address] * ABO/Rh (10/31/2024 9:25 AM MINES INSPECTOR) ABO/Rh A Negative Blood 10/31/2024 9:25 AM MINES INSPECTOR 10/31/2024 9:30 AM MINES INSPECTOR Narrative [facility] - 10/31/2024 10:17 AM MINES INSPECTOR Has the patient had Daratumumab or Isatuximab in the past 6 months?->Unknown Is this test being ordered in advance for a procedure?->Yes Expected date of procedure:->11/14/24 Has the patient been transfused in the past 3 months?->No Miley Jackson MD LAB BLOOD BANK TEST ORDERABLES Final Result Performing Organization Address [facility] Phone Number [address] [address] * Antibody screen (10/31/2024 9:25 AM MINES INSPECTOR) Audra, indirect, Gel Interpretation Negative ABSC Blood 10/31/2024 9:25 AM MINES INSPECTOR 10/31/2024 9:30 AM MINES INSPECTOR Narrative [facility] - 10/31/2024 10:17 AM MINES INSPECTOR Has the patient had Daratumumab or Isatuximab in the past 6 months?->Unknown Is this test being ordered in advance for a procedure?->Yes Expected date of procedure:->11/14/24 Has the patient been transfused in the past 3 months?->No Miley Jackson MD LAB BLOOD BANK TEST ORDERABLES Final Result Performing Organization Address [facility] de Phone Number [address] [address] * Basic metabolic panel (10/31/2024 9:25 AM MINES INSPECTOR) Pathologist [facility] Sodium 141 135 - 145 mmol/L Potassium, pl 4.1 3.3 - 4.9 mmol/L [facility] Chloride 109 97 - 110 mmol/L [facility] CO2 22 22 - 32 mmol/L [facility] Anion gap 10 2 - 15 mmol/L [facility] BUN 23 6 - 25 mg/dL [facility] Creatinine 0.95 0.80 - 1.30 mg/dL [facility] Glucose 126 70 - 199 mg/dL [facility] Comment: Interpretive Data Fasting glucose >/= 126 [...] 2022. Calcium 9.1 8.5 - 10.3 mg/dL [facility] Blood 10/31/2024 9:25 AM MINES INSPECTOR 10/31/2024 9:30 AM MINES INSPECTOR us Yousef Lorena Jackson MD LAB BLOOD ORDERABLES Final Result [facility] [address] [facility] Department [place] [address] * ECG 12 lead (10/31/2024 9:18 AM MINES INSPECTOR) [facility] Ventricular Rate EKG/Min 57 BPM [facility] Atrial Rate 57 BPM [facility] LA-Interval (MSEC) 168 ms [facility] QRS-Interval (MSEC) 108 ms [facility] QT-Interval (MSEC) 408 ms [facility] QTc 397 ms [facility] P [place] 32 degrees [facility] R [place] 72 degrees [facility] T [place] 63 degrees [facility] Diagnosis Sinus bradycardia Otherwise normal ECG No previous ECGs available Confirmed by CARLINE MANZO M.D. ([id number]) on 10/31/2024 8:28:27 PM [facility] 10/31/2024 9:18 AM MINES INSPECTOR 10/31/2024 8:28 PM MINES INSPECTOR Mansiha Stevenson COMMUNITY LIVING COACH ECG ORDERABLES Opal l Result Performing Organization Address City/[facility]/ZIP Co de Phone Number [facility] [employer] [facility] * PET Outside Reference (09/25/2024 8:35 PM MINES INSPECTOR) Impressions RAD_PACS_[facility] - 09/25/2024 8:35 PM MINES INSPECTOR These images are for Reference purposes only and have not been reviewed by [facility] Radiology. There will be no report generated by a [facility] Radiologist. Narrative RAD_PACS_[facility] - 09/25/2024 8:35 PM MINES INSPECTOR EXAMINATION: Images For Reference Purposes Only Miley Jackson MD IMG PET PROCEDURES F inal Result Performing Organization Address [facility]/ZIP Co de Phone Number [email or web address] * Measure post void residual (09/25/2024 3:18 PM MINES INSPECTOR) Narrative Livia Alvarez RMA - 09/25/2024 3:18 PM MINES INSPECTOR Measurement of Post Void Residual urine and/or bladder capacity PVR = 10ml Miley Jackson MD NURSING ASSESSMENTS Final Result * Urinalysis reflex to microscopic and culture Urine, bladder (09/25/2024 3:07 PM MINES INSPECTOR) Color, ur Yellow Yellow Comment:Testing performed by : [address] [address] Clarity, ur Clear Clear [facility] Comment:Testing performed by : [address] [address] Specific gravity, ur 1.023 1.003 - 1.030 [facility] Comment:Testing performed by : [address] [address] pH, urine 7.0 [facility] Comment: Interpretive Data U rine pH is affected by diet, medications, systemic acid-base disturbances, and renal tubular function. pH may affect urinary stone formation. For example, urine pH below 6.0 may help reduce the tendency for calcium phosphate stones and pH greater than 6.0 may reduce the tendency for uric acid stone formation. Source: [facility] [employer] Current Interpretive Data was last revised on 2017 Testing performed by: [facility], [address] [place] [address], [place]., [address] Protein, ur ql Negative Negative [facility] Comment:Testing performed by : [facility], [address] [place] [address], [place]., [address] Glucose, ur ql Negative Negative [facility] Comment:Testing performed by : [address], [place]., [address] Ketones, ur Negative Negative [facility] Comment:Testing performed by : [address], [place]., [address] Bilirubin, ur Negative Negative [facility] Comment:Testing performed by : [address], [place]., [address] Blood, ur Negative Negative [facility] Comment:Testing performed by : [address], [place]., [address] Urobilinogen, ur <2.0 <2.0 mg/dL [facility] Comment:Testing performed by : [address], [place]., [address] Nitrite, ur Negative Negative [facility] Comment:Testing performed by : [address], [place]., [address] Leukocyte esterase, ur Negative Negative [facility] Comment:Testing performed by : [address], [place]., [address] UA reflex comment Reflex conditions for microscopic UA and culture not met. [facility] Comment:Testing performed by : [address], [place]., [address] Urine, bladder 09/25/2024 3: 07 PM MINES INSPECTOR 09/25/2024 8:55 PM MINES INSPECTOR us Yousef oLrena Jackson MD LAB MICROBIOLOGY - G ENERAL ORDERABLES Final Result [facility] [address] [facility] Department [place] [address] * (ABNORMAL) POCT urinalysis dipstick (09/25/2024 3:06 PM MINES INSPECTOR) Color, Urine, POC Yellow Clarity, ur, POC Clear Clear Glucose, ur, POC Negative Negative MG/DL Bilirubin, ur, POC Negative Negative, Small, Moderate, Large Ketones, ur, POC Negative Negative Specific [place], POC 1.020 1.003 - 1.030 Blood, ur, POC Negative Negative pH, ur, POC 6.5 5.0 - 8.0 Protein, ur, POC Negative Negative Urobilinogen, urine, POC 0.2 0.2 - 1.0 mg/dL Nitrite, ur, POC Negative Negative Leukocytes, ur, POC Trace(A) Negative Lot Number 0 Urine 09/25/2024 3:06 PM MINES INSPECTOR [facility] Lorena Jackosn MD POINT OF CARE TEST O RDERABLES Final Result from Last 3 Months Insurance [email or web address] MEDICARE PPO [employer] MEDICARE HMO [employer] MEDICARE HMO Care Teams Stemmer Machine Relationship Specialty Start Date End Date Eligio Cramer MD PCP - General Internal Medicine 12/28/22
[2024-11-06 10:24] VITALS: BP 136/92; PULSE 82; RESP 18; TEMP 36.4; O2SAT 98
[2024-11-06] MEDS: LACTATED RINGERS 1,000 ML 150 ML IV CONT (10:39)
--- NOTE | 2024-11-06 10:50 | PM.HPGS ---
History of Present Illness History of Present Illness Consent: Risks, benefits, and alternatives have been discussed and questions answered. Patient agrees to proceed with procedure. Chief complaint: Hx of polyps Narrative: Mark Moore is a 68 year old male with colon polyp in 2019 Review of Systems Review of Systems: All systems reviewed & are unremarkable except as noted in HPI and below PMFSH Past Medical History Medical History Adenomatous colon polyp Healthy adult Prostate cancer Surgical History Surgical History H/O cataract extraction H/O left inguinal hernia repair H/O left knee surgery H/O right inguinal hernia repair History of nasal surgery Hx of excision of mass exc 2cm neck mass, 1cm back mass x2 on 02/12/23 Family History Family History Father Malignant neoplasm of prostate Mother Family history of seizure disorder Family history of lupus erythematosus Other Diabetes mellitus Hypertension Social History Social History Years smoked: 20 Smoking status: Former smoker Tobacco type: cigarettes Smoking end date: 08/30/08 Alcohol intake: current Drinks per week: 14 Substance use: current Substance use type: marijuana Other substance usage details: Daily Spiritual care concerns: No Meds Home Medications and Allergies Home Medications ?Medication ?Instructions ?Recorded ?Confirmed ?Type No Home Medications 11/06/24 11/06/24 History Allergies Allergy/AdvReac Type Severity Reaction Status Date / Time No Known Allergies Allergy Verified 11/06/24 10:22 Vital Signs Vital Signs - 24 hr 11/06/24 10:24 Temperature 97.5 F L Pulse Rate 82 Respiratory Rate 18 Blood Pressure 136/92 H Pulse Oximetry 98 Oxygen Delivery Room Air Exam Const: General: comfortable and no acute distress HENMT: Face/Nose/Sinus: Normal nares present Eyes: General: appearance normal, both eyes and all related structures Neck: Neck: no JVD Resp: Auscultation: clear to auscultation bilaterally Cardio: Rate: regular rate Rhythm: regular rhythm GI: Inspection: non-distended GI Palp: Yes Soft to palpation Skin: General skin exam: normal color Neuro: Speech: normal speech Extrem: General: normal to inspection Psych: Mental Status: mental status grossly normal Assessment and Plan Assessment and plan (1) Adenomatous colon polyp: Qualifiers: Colon location: unspecified part of colon Qualified Code(s): D12.6 - Benign neoplasm of colon, unspecified Code(s): D12.6 - Benign neoplasm of colon, unspecified Status: Acute Assessment and Plan: colonoscopy
--- NOTE | 2024-11-06 10:55 | P.PNAN_ITS ---
Anes - Initial Pre Proc Eval Procedure: Operation Date: 11/06/24 11:30 Proposed Procedures p Screening Colonoscopy - Jason Vernon MD Date/Time: 11/06/24 10:55 Surgeon: Jason Vernon MD Pre Op Diagnosis: Hx of polyps Patient Data Age: 68 Gender: M Height: 1.78 m Weight: 76.2 kg Last Vital Signs Temp 36.4 C L 11/06/24 10:24 Pulse 82 11/06/24 10:24 Resp 18 11/06/24 10:24 BP 136/92 H 11/06/24 10:24 Pulse Ox 98 11/06/24 10:24 O2 Del Method Room Air 11/06/24 10:24 Allergies Allergy/AdvReac Type Severity Reaction Status Date / Time No Known Allergies Allergy Verified 11/06/24 10:22 Home Medications ?Medication ?Instructions ?Recorded ?Confirmed ?Type No Home Medications 11/06/24 11/06/24 History Patient hx anesthesia problems: none Family hx anesthesia problems: none Results Review: All pre-operative results and documents have been reviewed as part of the pre- operative evaluation. [facility] Past Medical History Medical History Prostate cancer Adenomatous colon polyp Healthy adult Surgical History Surgical History Hx of excision of mass exc 2cm neck mass, 1cm back mass x2 on 02/12/23 H/O cataract extraction H/O left knee surgery History of nasal surgery H/O right inguinal hernia repair H/O left inguinal hernia repair Family History Family History Father Malignant neoplasm of prostate Mother Family history of seizure disorder Family history of lupus erythematosus Other Diabetes mellitus Hypertension Social History Social History Years smoked: 20 Smoking status: Former smoker Tobacco type: cigarettes Smoking end date: 08/30/08 Alcohol intake: current Drinks per week: 14 Substance use: current Substance use type: marijuana Other substance usage details: Daily Spiritual care concerns: No Anes - Eval Final PreProcedure Day of Procedure 03/10/25 10:55 Patient weight: normal Heart: regular rate and rhythm Lungs: decreased breath sounds Airway: Mallampati scale class II Neurological: alert and oriented Last oral intake: >/= 8 hours ASA classification: III Emergent: no Anesthetic plan: proceed Anesthesia type and monitoring: general GIVS and standard monitoring Results Review: All pre-operative results and documents have been reviewed as part of the pre-operative evaluation. Informed Consent: The patient's anesthetic plan and its attendant risks and benefits were discussed with the patient/family/POA. Questions were solicited and answers provided to the satisfaction of the patient/family/POA.
[2024-11-06 11:13] VITALS: BP 117/78; PULSE 77; RESP 20; O2SAT 96
[2024-11-06 11:23] VITALS: BP 111/74; PULSE 68; RESP 18; O2SAT 99
[2024-11-06 11:33] VITALS: BP 126/92; PULSE 70; RESP 18; O2SAT 98
== END 2024-11-06 11:45 | disposition home or self-care (01) ==
PROVIDERS: PCP Internal Medicine; Visit Provider Internal Medicine Gastroenterology
PROC: 0DJD8ZZ Inspection of Lower Intestinal Tract, Via Natural or Artificial Opening Endoscopic (ICD-10-PCS; CPT 45378; principal; 2024-11-06 11:30)
DX: Z12.11 Encounter for screening for malignant neoplasm of colon (principal); D12.3 Benign neoplasm of transverse colon; D12.4 Benign neoplasm of descending colon; K64.8 Other hemorrhoids; K57.30 Diverticulosis of large intestine without perforation or abscess without bleeding; Z98.890 Other specified postprocedural states; Z87.891 Personal history of nicotine dependence; Z85.46 Personal history of malignant neoplasm of prostate; Z80.42 Family history of malignant neoplasm of prostate
CPT/HCPCS: 45385; 88305; J2003; J2704; J7120